=== PATIENT | female | born 1955 | race Caucasian/White ===

== ENCOUNTER 2017-12-25 20:14 | Observation (INO) | payer MEDICARE ==
[~2017-12-25] VITALS: Ht 160 cm; Wt 99.8 kg
[2017-12-25 21:12] LABS: BASOPHILS % 0.2 % (0.0-1.0); EOSINOPHILS # (AUTO) 0.2 (0.0-0.4); EOSINOPHILS % 3.7 % (0.0-6.0); LYMPHOCYTES # (AUTO) 1.2 (1.0-3.2); LYMPHOCYTES % 23.9 % (18.0-39.1); MEAN CORPUSCULAR HEMOGLOBIN 17.2 pg (28-32); MEAN CORPUSCULAR HGB CONC 26.3 g/dL (31-35); MEAN CORPUSCULAR VOLUME 65.5 fL (81-99); MONOCYTES # (AUTO) 0.6 (0.2-0.8); NEUTROPHILS # (AUTO) 3.2 (2.1-6.9); NEUTROPHILS % 60.8 % (38.7-80.0); PLATELET COUNT 273 x10e3/uL (140-360); RED BLOOD COUNT 3.19 x10e6/uL (3.6-5.1); RED CELL DISTRIBUTION WIDTH 19.9 % (11.7-14.4)
[2017-12-25 21:14] LABS: HEMATOCRIT 20.9 % (34.2-44.1); HEMOGLOBIN 5.5 g/dL (12.0-16.0)
[2017-12-25 21:24] LABS: BILIRUBIN,URINE NEGATIVE (NEGATIVE); CLARITY,URINE CLEAR (CLEAR); COLOR,URINE YELLOW (YELLOW); KETONES,URINE NEGATIVE (NEGATIVE); LEUKOCYTE ESTERASE ,URINE 2+ (NEGATIVE); NITRITE,URINE NEGATIVE (NEGATIVE); PROTEIN,URINE DIPSTICK TRACE (NEGATIVE); URINE UROBILINOGEN 0.2 mg/dL (0.2 - 1)
[2017-12-25 21:32] LABS: ALANINE AMINOTRANSFERASE 13 IU/L (0-55); ALBUMIN 3.5 g/dL (3.5-5.0); ALBUMIN/GLOBULIN RATIO 1.2 (0.8-2.0); ALKALINE PHOSPHATASE 59 IU/L (40-150); ANION GAP 13.4 mmol/L (8-16); BLOOD UREA NITROGEN 13 mg/dL (7-26); BUN/CREATININE RATIO 19 (6-25); CALCIUM 8.8 mg/dL (8.4-10.2); CARBON DIOXIDE 21 mmol/L (22-29); CHLORIDE 108 mmol/L (98-107); CREATININE, SERUM 0.68 mg/dL (0.57-1.11); EST GLOMERULAR FILTRATION RATE > 60 ML/MIN (60-); GLUCOSE 105 mg/dL (74-118); POTASSIUM 3.4 mmol/L (3.5-5.1); SODIUM 139 mmol/L (136-145)
[2017-12-25 21:38] LABS: BACTERIA,URINE FEW /HPF; EPITHELIAL CELLS,URINE RARE /LPF; MUCUS,URINE FEW (RARE); RBC,URINE 0-5 /HPF (0-5); WBC,URINE (MAN) 21-50 /HPF (0-5)
[2017-12-25] MEDS ORDERED: SODIUM CHLORIDE 0.9% 250ML 250 ML IV ONE (23:30)
[2017-12-25] MEDS ORDERED: ONDANSETRON HCL 4 MG ORAL DISINTEGRATING TAB PO PRN (23:30)
[2017-12-25] MEDS ORDERED: ACETAMINOPHEN 325 MG TAB PO PRN (23:30)
[2017-12-26 00:15] LABS: INR 1.23; PARTIAL THROMBOPLASTIN TIME 32.1 seconds (23.8-35.5); PROTHROMBIN TIME 14.6 seconds (11.9-14.5)
[2017-12-26 02:00] VITALS: BP 129/60
[2017-12-26] MEDS ORDERED: SODIUM CHLORIDE 0.9% 250ML 250 ML ONE ×3 (02:47→08:26)
[2017-12-26 04:00] VITALS: BP 135/61
[2017-12-26] MEDS: FUROSEMIDE INJ 10 MG/ML 2 ML VIAL IV PRN (06:33)
[2017-12-26] MEDS ORDERED: OMEPRAZOLE40 MG PO (07:24)
[2017-12-26] MEDS ORDERED: VENLAFAXINE HCL75 MG PO (07:24)
[2017-12-26] MEDS ORDERED: OXYBUTYNIN CHLOR5 MG PO (07:24)
[2017-12-26] MEDS: PANTOPRAZOLE SOD 40 MG TABEC PO SCH (07:30)
[2017-12-26] MEDS: FERROUS SULFATE 325 MG TAB PO SCH ×3 (07:45→17:00)
[2017-12-26 07:51] VITALS: BP 158/56
[2017-12-26] MEDS: VENLAFAXINE HCL 75 MG CAPCR PO SCH (09:00)
[2017-12-26] MEDS: OXYBUTYNIN CHLORIDE 5 MG TAB PO SCH ×2 (09:00→17:00)
[2017-12-26 11:51] VITALS: BP 125/60
[2017-12-26 13:52] LABS: BASOPHILS % 0.7 % (0.0-1.0); EOSINOPHILS # (AUTO) 0.1 (0.0-0.4); EOSINOPHILS % 2.3 % (0.0-6.0); HEMATOCRIT 27.5 % (34.2-44.1); HEMOGLOBIN 7.8 g/dL (12.0-16.0); LYMPHOCYTES % 16.1 % (18.0-39.1); MEAN CORPUSCULAR HEMOGLOBIN 19.2 pg (28-32); MEAN CORPUSCULAR HGB CONC 28.4 g/dL (31-35); MEAN CORPUSCULAR VOLUME 67.7 fL (81-99); MONOCYTES # (AUTO) 0.6 (0.2-0.8); MONOCYTES % 10.3 % (4.4-11.3); NEUTROPHILS # (AUTO) 4.3 (2.1-6.9); NEUTROPHILS % 69.9 % (38.7-80.0); PLATELET COUNT 236 x10e3/uL (140-360); RED BLOOD COUNT 4.06 x10e6/uL (3.6-5.1); RED CELL DISTRIBUTION WIDTH 20.2 % (11.7-14.4)
[2017-12-26 14:11] LABS: ALANINE AMINOTRANSFERASE 15 IU/L (0-55); ALBUMIN 3.3 g/dL (3.5-5.0); ALBUMIN/GLOBULIN RATIO 1.2 (0.8-2.0); ALKALINE PHOSPHATASE 55 IU/L (40-150); ANION GAP 11.5 mmol/L (8-16); BLOOD UREA NITROGEN 11 mg/dL (7-26); BUN/CREATININE RATIO 17 (6-25); CALCIUM 8.7 mg/dL (8.4-10.2); CARBON DIOXIDE 26 mmol/L (22-29); CHLORIDE 107 mmol/L (98-107); CREATININE, SERUM 0.66 mg/dL (0.57-1.11); EST GLOMERULAR FILTRATION RATE > 60 ML/MIN (60-); GLUCOSE 99 mg/dL (74-118); POTASSIUM 3.5 mmol/L (3.5-5.1); SODIUM 141 mmol/L (136-145)
[2017-12-26] MEDS ORDERED: SODIUM CHLORIDE 0.9% 250ML 250 ML IV ONE ×2 (14:30→15:30)
[2017-12-26 14:46] LABS: THYROID STIMULATING HORMONE 1.91 uIU/mL (0.350-4.940)
[2017-12-26 17:52] VITALS: BP 143/64
[2017-12-26 18:31] LABS: RETICULOCYTE % 1.2 % (0.8-2.2)
--- NOTE | 2017-12-26 18:55 | Consultation ---
DATE OF CONSULTATION: December 26, 2017 HEMATOLOGY-ONCOLOGY CONSULTATION REQUESTING PHYSICIAN: Dr. Rojas REASON FOR CONSULTATION: Evaluation and management of patient with severe anemia. HISTORY OF PRESENT ILLNESS: Ms. Barrett is a very pleasant, 62-year-old female with a longstanding history of severe anemia with history of GI bleed. She underwent extensive workup in the past several years ago which remained nondiagnostic. She has been on oral iron supplementation as an outpatient. Now presented with worsening shortness of breath and tiredness. She was noted to have hemoglobin of 5.5 and hematocrit of 20.9. She was admitted to inpatient floor, and hematology-oncology has been consulted to assist with management. Meanwhile, the patient has received 2 units of PRBC transfusion with improved symptoms. Presently, she is lying comfortably, not in acute distress, breathing normally. Denies any nausea, vomiting, fever, or chills. She does not recall noticing any blood in the stool. However, she has been having occasional epistaxis. PAST MEDICAL HISTORY 1. History of epistaxis. 2. History of GI bleed, status post EGD and colonoscopy back in 2010. 3. Questionable history of peptic ulcer disease and irritable bowel syndrome. PAST SURGICAL HISTORY: Surgery for the nosebleed. SOCIAL HISTORY: She denies history of smoking, alcohol use or illicit drug use. FAMILY HISTORY: Positive for lung cancer and gastric cancer. ALLERGIES: NO KNOWN DRUG ALLERGIES. CURRENT MEDICATIONS: Reviewed and as per electronic medical record. REVIEW OF SYSTEMS: The 14-point review of systems negative except as mentioned above in history of present illness. PHYSICAL EXAMINATION VITAL SIGNS: Reviewed and as per electronic medical record. HEENT: PERRLA. Extraocular movements intact. Head is atraumatic, normocephalic. NECK: Supple. No JVD. CVS: S1 and S2 audible. RESPIRATORY: Decreased bilateral air entry. ABDOMEN: Soft. Positive bowel sounds. EXTREMITIES: Negative edema. NEURO: Patient is alert and awake. LABORATORY DATA: White blood cell count 6.1, hemoglobin 7.8, hematocrit 27.5, platelets 236. BUN 17, creatinine 0.6. ASSESSMENT AND PLAN: Ms. Barrett is a very pleasant, 62-year-old female with remote history of gastrointestinal bleed requiring extensive gastrointestinal workup which, according to the patient, was nondiagnostic. Overall, the patient is a poor historian and most of the history is obtained from the chart and previous electronic medical record. It appears that she had EGD and colonoscopy back in 2010. She also has been having occasional epistaxis. In the past, she underwent surgical fixation of epistaxis, though she continued to have recurrence. She is admitted due to severe, symptomatic anemia. I have reviewed the records and discussed in detail. Overall, it appears that the patient has severe iron deficiency anemia, as the patient has microcytic picture. She has already received 2 units of PRBC transfusion with improved symptoms. She is going to receive another unit of transfusion. I will recommend long-term IV iron infusion as well as GI workup as outpatient. If she is discharged, will follow up as an outpatient. Thank you for the consult. I will continue to be available. Please call with questions. Job#: [id number] LIZABETH
[2017-12-26 19:36] LABS: FOLATE 11.7 ng/mL (7.0-15.4)
[2017-12-26 20:00] VITALS: BP 131/63
[2017-12-27] VITALS: BP 158/64
[2017-12-27 01:06] VITALS: BP 131/63
[2017-12-27] MEDS ORDERED: SODIUM CHLORIDE 0.9% 250ML 250 ML ONE (01:57)
[2017-12-27] MEDS: FUROSEMIDE INJ 10 MG/ML 2 ML VIAL IV PRN ×2 (02:00→06:08)
[2017-12-27 04:00] VITALS: BP 125/59
--- NOTE | 2017-12-27 06:35 | Diagnostic Imaging Report ---
EXAM: CHEST 2 VIEWS, PA and lateral INDICATION: Dyspnea COMPARISON: PA and lateral view of the chest October 22, 2009 FINDINGS: LINES/TUBES: None LUNGS: No consolidations or edema. PLEURA: No effusions or pneumothorax. HEART AND MEDIASTINUM: Normal size and contour. BONES AND SOFT TISSUES: No acute findings. IMPRESSION: No acute thoracic abnormality. Signed by: Dr. Angelika Haley M.D. on 12/27/2017 6:32 AM
[2017-12-27 07:55] VITALS: BP 131/58
[2017-12-27 08:16] LABS: BASOPHILS % 0.6 % (0.0-1.0); EOSINOPHILS # (AUTO) 0.2 (0.0-0.4); EOSINOPHILS % 2.8 % (0.0-6.0); HEMATOCRIT 34.9 % (34.2-44.1); HEMOGLOBIN 10.5 g/dL (12.0-16.0); LYMPHOCYTES # (AUTO) 1.1 (1.0-3.2); LYMPHOCYTES % 16.3 % (18.0-39.1); MEAN CORPUSCULAR HEMOGLOBIN 20.3 pg (28-32); MEAN CORPUSCULAR HGB CONC 30.1 g/dL (31-35); MEAN CORPUSCULAR VOLUME 67.5 fL (81-99); MONOCYTES # (AUTO) 0.7 (0.2-0.8); MONOCYTES % 9.7 % (4.4-11.3); NEUTROPHILS # (AUTO) 4.7 (2.1-6.9); NEUTROPHILS % 69.4 % (38.7-80.0); PLATELET COUNT 238 x10e3/uL (140-360); RED BLOOD COUNT 5.17 x10e6/uL (3.6-5.1); RED CELL DISTRIBUTION WIDTH 22.4 % (11.7-14.4)
[2017-12-27 08:33] LABS: ANION GAP 13.6 mmol/L (8-16); BLOOD UREA NITROGEN 9 mg/dL (7-26); BUN/CREATININE RATIO 13 (6-25); CALCIUM 9.3 mg/dL (8.4-10.2); CARBON DIOXIDE 25 mmol/L (22-29); CHLORIDE 106 mmol/L (98-107); CREATININE, SERUM 0.67 mg/dL (0.57-1.11); EST GLOMERULAR FILTRATION RATE > 60 ML/MIN (60-); GLUCOSE 103 mg/dL (74-118); POTASSIUM 3.6 mmol/L (3.5-5.1); SODIUM 141 mmol/L (136-145)
[2017-12-27] MEDS: OXYBUTYNIN CHLORIDE 5 MG TAB PO SCH (08:36)
[2017-12-27] MEDS: PANTOPRAZOLE SOD 40 MG TABEC PO SCH (08:36)
[2017-12-27] MEDS: VENLAFAXINE HCL 75 MG CAPCR PO SCH (08:36)
[2017-12-27] MEDS: FERROUS SULFATE 325 MG TAB PO SCH (08:36)
[2017-12-27 09:58] VITALS: BP 131/58
--- NOTE | 2017-12-27 10:27 | Discharge Summary ---
HISTORY OF PRESENT ILLNESS: The patient was hospitalized through the emergency room late Thursday night with severe anemia. Database was obtained. The patient was transfused and ordered to be given 4 units packed cells. Course here was uneventful. The patient has a long history of chronic epistaxis and has had multiple prior ENT procedures by Dr. Burger. See also dictated history and physical with prior negative GI workup here. The patient was kindly seen by a consulting head school custodian, Dr. Enriquez. See notes. He did not order intravenous iron at this time. The patient refused to take recommended oral iron. Essentially home medications were continued. Admission hemoglobin 5.5 with MCV 65, MCH 17, MCHC 26. Followup on December 26 after 2 units of packed cells hemoglobin was7.8 and patient was given 2 additional units. Sed rate was 13. Reticulocyte count was 1.2. White count 6.14, platelet count normal at 236,000. White cell differential normal. Pro time normal. PTT normal at 32. Pyuria on urinalysis with 21-50 white cells per high power field without symptoms of urinary tract infection. Urine culture was ordered and is pending, ordered by myself on the . Stool occult blood negative. Serum chemistries essentially normal. Cfmy099, TIBC 379, percent saturation 51. Transferrin 271. Ferritin was low at 3.85. B12 level 244, normals being 213 to 816. Folic acid level 11.7 normal. TSH 1.9. Chest x-ray clear. FINAL IMPRESSION: 1. Chronic recurring microcytic hypochromic anemia. 2. Chronic epistaxis, intermittent. 3. Overactive bladder. 4. Depression. 5. Morbid obesity with BMI 36. 6. Pyuria. Urine culture pending. The patient was asked to follow up within the week. She is advised to take oral iron 325 mg b.i.d. She is advised to follow up closely with her head school custodian and cloth bin packer. Followup urine culture. JOSE M WHEATLEY MD Job#: [id number]
[2017-12-27 11:19] LABS: ANISOCYTOSIS SLIGHT; HYPOCHROMASIA SLIGHT; MICROCYTOSIS SLIGHT; PLATELET ESTIMATE ADEQUATE; PLATELET MORPHOLOGY COMMENT NORMAL
[2017-12-27 11:20] LABS: RBC MORPHOLOGY COMMENT NORMAL
== END 2017-12-27 10:40 | disposition home or self-care (01) ==
LOC: ER 20:14 → ERHOLD 23:36 → MED/SURG 12-26 01:32
PROVIDERS: ADMIT Internal Medicine; ATTEND Internal Medicine
DX: D50.0 Iron deficiency anemia secondary to blood loss (chronic) (principal); N30.00 Acute cystitis without hematuria; R04.0 Epistaxis; K52.9 Noninfective gastroenteritis and colitis, unspecified; K20.9 Esophagitis, unspecified; K29.70 Gastritis, unspecified, without bleeding; N39.0 Urinary tract infection, site not specified; E66.01 Morbid (severe) obesity due to excess calories; Z68.38 Body mass index [BMI] 38.0-38.9, adult; Z80.0 Family history of malignant neoplasm of digestive organs; Z80.1 Family history of malignant neoplasm of trachea, bronchus and lung; N32.81 Overactive bladder
CPT/HCPCS: 36430; P9016; 36415; 71046; 80048; 80053; 81001; 82270; 82607; 82728; 82746; 83540; 83880; 84443; 84466; 85025; 85045; 85610; 85651; 85730; 86850; 86900; 86920; 87086; 93005; 99284; G0378; J1940; J7050

== ENCOUNTER 2018-06-23 12:57 | Emergency (ER) | payer MEDICARE ==
[~2018-06-23] VITALS: Ht 160 cm; Wt 99.8 kg
[~2018-06-23 12:57] MED LIST: OMEPRAZOLE40 MG PO; OXYBUTYNIN CHLOR5 MG PO; VENLAFAXINE HCL75 MG PO
--- OUTSIDE RECORDS SUMMARY | 2018-06-23 12:59 | XMS REPORT ---
Author Author [facility] Address Unknown Phone Unavailable Care Team Providers Care Transport Analyst Name Role Phone JOSE M WHEATLEY Unavailable Unavailable Problems This patient has no known problems. Allergies, Adverse Reactions, Alerts This patient has no known allergies or adverse reactions. Medications This patient has no known medications. Results Test Description Test Time Test Comments Text Results Atomic Results Result Comments CHEST 2 VIEWS [facility] [address] [id number] Patient Name: FLY MILES MR #: [id number] : 1955 Age/Sex: 62/F Req #: [id number] [facility] Physician: JOSE M WHEATLEY MD Ordered by: JOSE M WHEATLEY MD Report #: [id number] Location: MED/SURG Room/Bed: [facility] Procedure: [id number] DX/CHEST 2 VIEWS Exam Date: 12/27/17 Exam Time: 0615 REPORT STATUS: Signed EXAM: CHEST 2 VIEWS, PA and lateral INDICATION: Dyspnea COMPARISON: PA and lateral view of the chest October 22, 2009 FINDINGS: LINES/TUBES: None LUNGS: No consolidations or edema. PLEURA: No effusions or pneumothorax. HEART AND MEDIASTINUM: Normal size and contour. BONES AND SOFT TISSUES: No acute findings. IMPRESSION: No acute thoracic abnormality. Signed by: Dr. Rich Jefferson M.D. on 12/27/2017 6:32 AM Dictated By: RICH JEFFERSON MD 1 Transcribed By: DAMARIS on 12/27/17631 COPY TO: JOSE M WHEATLEY MD
[2018-06-23] MEDS ORDERED: ALBUTEROL SULF 0.083% NEB SOLN 3 ML NEB NEB STA (13:03)
[2018-06-23] MEDS ORDERED: IPRATROPIUM BROMIDE 0.02% 2.5 ML NEB NEB STA (13:03)
[2018-06-23] MEDS ORDERED: SODIUM CHLORIDE 0.9% 1000ML 1,000 ML IV STA (13:03)
[2018-06-23] MEDS ORDERED: OXYMETAZOLINE HCL 0.05% NAS 1 SPRAY BTL STA (13:03)
[2018-06-23 14:03] LABS: BASOPHILS % 0.1 % (0.0-1.0); EOSINOPHILS # (AUTO) 0.1 (0.0-0.4); EOSINOPHILS % 0.9 % (0.0-6.0); HEMATOCRIT 32.5 % (34.2-44.1); HEMOGLOBIN 9.4 g/dL (12.0-16.0); LYMPHOCYTES # (AUTO) 0.8 (1.0-3.2); LYMPHOCYTES % 9.6 % (18.0-39.1); MEAN CORPUSCULAR HEMOGLOBIN 24.5 pg (28-32); MEAN CORPUSCULAR HGB CONC 28.9 g/dL (31-35); MEAN CORPUSCULAR VOLUME 84.6 fL (81-99); MONOCYTES # (AUTO) 0.4 (0.2-0.8); MONOCYTES % 5.1 % (4.4-11.3); NEUTROPHILS # (AUTO) 6.9 (2.1-6.9); NEUTROPHILS % 83.7 % (38.7-80.0); PLATELET COUNT 220 x10e3/uL (140-360); RED BLOOD COUNT 3.84 x10e6/uL (3.6-5.1); RED CELL DISTRIBUTION WIDTH 22.5 % (11.7-14.4)
[2018-06-23 14:17] LABS: INR 1.06; PARTIAL THROMBOPLASTIN TIME 26.7 seconds (23.8-35.5); PROTHROMBIN TIME 14.8 seconds (11.9-14.5)
--- NOTE | 2018-06-23 14:22 | Diagnostic Imaging Report ---
Examination: Single AP view of the chest. COMPARISON: December 27, 2017 INDICATION: Evaluate for congestive heart failure DISCUSSION: Lines/tubes: None. Lungs: Pulmonary venous congestion with mild edema. Scattered calcified granuloma. Pleura: There is no pleural effusion or pneumothorax. Heart and mediastinum: The heart and the mediastinum are unremarkable. Bones and soft tissues: No acute bony abnormalities. IMPRESSION: Pulmonary venous congestion and mild interstitial edema. Signed by: Dr. Robi Fischer M.D. on 06/23/2018 2:19 PM
[2018-06-23 14:26] LABS: ALANINE AMINOTRANSFERASE 16 IU/L (0-55); ALBUMIN 2.8 g/dL (3.5-5.0); ALBUMIN/GLOBULIN RATIO 0.9 (0.8-2.0); ALKALINE PHOSPHATASE 61 IU/L (40-150); ANION GAP 12.1 mmol/L (8-16); BLOOD UREA NITROGEN 13 mg/dL (7-26); BUN/CREATININE RATIO 19 (6-25); CALCIUM 8.3 mg/dL (8.4-10.2); CARBON DIOXIDE 21 mmol/L (22-29); CHLORIDE 108 mmol/L (98-107); CREATINE KINASE 91 IU/L (29-168); CREATININE, SERUM 0.68 mg/dL (0.57-1.11); EST GLOMERULAR FILTRATION RATE > 60 ML/MIN (60-); GLUCOSE 104 mg/dL (74-118); POTASSIUM 4.1 mmol/L (3.5-5.1); SODIUM 137 mmol/L (136-145)
[2018-06-23 16:03] VITALS: BP 137/81
== END 2018-06-23 16:54 | disposition home or self-care (01) ==
LOC: ER 12:57
DX: R04.0 Epistaxis (principal); R42 Dizziness and giddiness; D64.9 Anemia, unspecified; K21.9 Gastro-esophageal reflux disease without esophagitis
CPT/HCPCS: 36415; 71045; 80053; 82550; 82553; 83880; 84484; 85025; 85610; 85730; 93005; 94640; 99284; J7030

== ENCOUNTER 2019-02-08 12:04 | Observation (INO) | payer MEDICARE ==
[~2019-02-08] VITALS: Ht 160 cm; Wt 97.8 kg
[2019-02-08] MEDS ORDERED: IBUPROFEN 600 MG TAB PO STA (12:42)
--- NOTE | 2019-02-08 12:53 | NUR ---
PATIENT EVALUATED BY DR. NANCE IN TRIAGE
[2019-02-08 13:45] LABS: BASOPHILS % 0.5 % (0.0-1.0); EOSINOPHILS # (AUTO) 0.1 (0.0-0.4); HEMATOCRIT 23.4 % (34.2-44.1); LYMPHOCYTES # (AUTO) 0.5 (1.0-3.2); LYMPHOCYTES % 7.4 % (18.0-39.1); MEAN CORPUSCULAR HEMOGLOBIN 21.9 pg (28-32); MEAN CORPUSCULAR HGB CONC 28.6 g/dL (31-35); MEAN CORPUSCULAR VOLUME 76.5 fL (81-99); MONOCYTES # (AUTO) 0.4 (0.2-0.8); MONOCYTES % 5.6 % (4.4-11.3); NEUTROPHILS # (AUTO) 5.3 (2.1-6.9); NEUTROPHILS % 84.5 % (38.7-80.0); PLATELET COUNT 233 x10e3/uL (140-360); RED BLOOD COUNT 3.06 x10e6/uL (3.6-5.1); RED CELL DISTRIBUTION WIDTH 18.8 % (11.7-14.4)
[2019-02-08 13:47] LABS: HEMOGLOBIN 6.7 g/dL (12.0-16.0)
[2019-02-08 13:55] LABS: INR 1.11; PARTIAL THROMBOPLASTIN TIME 33.9 seconds (23.8-35.5); PROTHROMBIN TIME 14.8 seconds (11.9-14.5)
[2019-02-08 14:01] LABS: ANION GAP 9.8 mmol/L (8-16); BLOOD UREA NITROGEN 13 mg/dL (7-26); BUN/CREATININE RATIO 22 (6-25); CALCIUM 8.8 mg/dL (8.4-10.2); CARBON DIOXIDE 26 mmol/L (22-29); CHLORIDE 102 mmol/L (98-107); CREATININE, SERUM 0.58 mg/dL (0.57-1.11); EST GLOMERULAR FILTRATION RATE > 60 ML/MIN (60-); GLUCOSE 93 mg/dL (74-118); POTASSIUM 3.8 mmol/L (3.5-5.1); SODIUM 134 mmol/L (136-145)
--- NOTE | 2019-02-08 14:41 | Diagnostic Imaging Report ---
PROCEDURE: X-RAY CHEST, TWO VIEWS COMPARISON: 06/23/2018. INDICATIONS: FEVER AND COUGH FINDINGS: The lungs are well-inflated. Minimal linear opacity in the left lung base compatible with subsegmental atelectasis. No airspace consolidation, pleural effusion, or pneumothorax. Tortuous thoracic aorta with atherosclerotic calcification. Normal heart size. Interval resolution of interstitial pulmonary edema relative to 06/23/2018. Right apical calcified granuloma unchanged. No acute osseous abnormality. Multilevel degenerative disc changes of the thoracic spine. CONCLUSION: Trace subsegmental atelectasis in the left lung base. Otherwise no acute cardiopulmonary abnormality. Dictated by: Pedro Pablo Poe M.D. on 02/08/2019 at 14:45 Electronically approved by: Pedro Pablo Poe M.D. on 02/08/2019 at 14:45
[2019-02-08 15:40] LABS: BILIRUBIN,URINE NEGATIVE (NEGATIVE); CLARITY,URINE CLEAR (CLEAR); COLOR,URINE YELLOW (YELLOW); KETONES,URINE NEGATIVE (NEGATIVE); LEUKOCYTE ESTERASE ,URINE NEGATIVE (NEGATIVE); NITRITE,URINE NEGATIVE (NEGATIVE); PROTEIN,URINE DIPSTICK NEGATIVE (NEGATIVE); URINE UROBILINOGEN 0.2 mg/dL (0.2 - 1)
[2019-02-08] MEDS ORDERED: SODIUM CHLORIDE 0.9% 250ML 250 ML IV ONE (18:00)
[2019-02-08] MEDS ORDERED: ONDANSETRON HCL INJ 2MG/ML 2ML 2 MG/ML VIAL IV PRN (18:00)
--- NOTE | 2019-02-08 18:24 | NUR ---
RECEIVED REPORT FROM JUAN IN ER AWAITING FOR PT TO ARRIVE TO FLOOR
[2019-02-08 18:35] LABS: % IRON SATURATION 37 % (15-50); IRON 123 ug/dL (50-170); TOTAL IRON BINDING CAPACITY 332 ug/dL (261-478); TRANSFERRIN 237 mg/dL (180-382)
--- NOTE | 2019-02-08 19:31 | NUR ---
Patient arrived to unit from ER. Oriented to environment and call light. Instructed to call on the onset of pain or SOB. Call light within reach.
[2019-02-08] MEDS ORDERED: BACITRACIN15 GM TOP (20:29)
[2019-02-08] MEDS ORDERED: ALLERGY RELIEF180 MG PO (20:29)
[2019-02-08] MEDS ORDERED: FISH OIL 1,2001 EAC1 (20:29)
[2019-02-08] MEDS ORDERED: OS-CAL 500+D T1 EACH PO (20:29)
[2019-02-08] MEDS ORDERED: NASAL SPRAY30 M1 ×2 (20:29)
[2019-02-08 20:54] VITALS: BP 110/62
[2019-02-08 21:00] VITALS: BP 110/62
[2019-02-08] MEDS ORDERED: SODIUM CHLORIDE 0.9% 250ML 500 ML ONE (22:18)
--- NOTE | 2019-02-08 22:48 | NUR ---
Notified Dr Rojas: temp 2205 98.7 orally, temp immediately prior blood 99.4 orally, 15 minutes into transfusion of first unit temp 99.7, 89, 19, 120/56. Order to stop blood transfusion and call Dr Enriquez. New orders for ABT. 2248 Blood stopped.
--- NOTE | 2019-02-08 22:50 | NUR ---
Dr Mina velazquez via answering service ( spoke with Kelby) Awaiting call back.
[2019-02-08] MEDS ORDERED: VANCOMYCIN 1GM/NS 250 ML 250 ML IV ONE (23:00)
--- NOTE | 2019-02-08 23:13 | NUR ---
Called answering service back: spoke with Dr Enriquez:Temp 98.7 2205, temp prior to blood 99.4 and 15 minutes into first unit 99.7. Blood stopped [address] Rojas until spoke to Dr Enriquez. 2300 100.0, 100% 117/55, 88, 20. New order to resume first unit of blood and give tylenol 650 mg po x1.
[2019-02-08] MEDS: ACETAMINOPHEN 325 MG TAB PO PRN (23:15)
--- NOTE | 2019-02-08 23:15 | NUR ---
2314 blood restarted per MD Dr Enriquez orders. 2315 Tylenol 650 mg po given x1. Will continue to monitor.
[2019-02-09] VITALS (8 sets, daily range): BP systolic 115–135; BP diastolic 55–79
[2019-02-09] MEDS ORDERED: SODIUM CHLORIDE 0.9% 250ML 250 ML ONE (00:05)
[2019-02-09] MEDS: MEROPENEM 500MG/ NS 50ML 500 MG in MEROPENEM 500MG/ NS 50ML 50 ML IV SCH ×3 (01:45→15:52)
--- NOTE | 2019-02-09 01:59 | History and Physical ---
HISTORY OF PRESENT ILLNESS: The patient called her ENT physician and she does not know his name. She states she called him because of fever and chills, and she was told to come to the emergency room. There she was found to be anemic and is being hospitalized for reassessment and transfusions. The patient has a long history of severe recurrent anemia and has been following up with her lorry weigher, Dr. Madeline Enriquez for years. Recently, the patient stopped going to her ENT physician. She has had chronic epistaxis and has nosebleeds daily. She has also prior stays here. The patient denies headache or visual change. No sore throat. Denies cough or purulent sputum. No chest pain or shortness of breath. Denies GI or symptoms. Neuromuscular is sedentary. Chronic morbid obesity. The patient refuses p.o. iron and is actually given intravenous iron routinely by her lorry weigher. The patient does report a normal bone marrow biopsy one month ago as an outpatient. See also prior records reviewed. The patient was in the ER in June for epistaxis. She was an inpatient here in December 2017. History includes reflux. She has been seen by MODESTA Engel in the past. Past history included depression and overactive bladder. The patient denies contributory family history. She states she is unaware regarding allergies. Denies major surgery. The patient is not a reliable historian. She has had cautery for nose bleeds in the past. All chart indicates positive lung cancer and gastric cancer family history. LABORATORY DATA: On December 2017, hemoglobin was 5.5. ER current lab reviewed as available. Hemoglobin is 6.7. No indices. Platelet count is within normal range. INR 1.11. PTT 33.9. Urinalysis clear. Basic metabolic profile within normal limits. White count is normal. PHYSICAL EXAMINATION: VITAL SIGNS: Temperature 101 in the ER today at 12:30. I was called at 5:40 in the evening. Current temperature is 99.2, pulse 88, respiratory rate 18, BP 121/88, and O2 saturation 100%. HEENT: Pupils are round and reactive. Pale. Throat is clear. No epistaxis now. PULMONARY: Auscultation is clear. (ER chest x-ray today, trace subsegmental atelectasis, left lung base). ABDOMEN: Obese and soft. Bowel sounds are normal. EXTREMITIES: Revealed dampened pulses without significant edema, cyanosis, or clubbing. DTR is depressed. NEUROLOGIC: Strength poor, sensorium trace, dull. CURRENT IMPRESSION: Acute febrile illness. Recurrent epistaxis with severe anemia. Chronic iron deficiency. The patient refuses p.o. iron and has refused p.o. iron long-standing. To reassess anemia, transfuse. Further treatment pending followup database. See also followup orders. Urine culture was requested. Hematology to see. ENT to follow up here. MD DARWIN Galan/MODL /[id number]
[2019-02-09] MEDS: ACETAMINOPHEN 325 MG TAB PO PRN (03:15)
--- NOTE | 2019-02-09 07:00 | NUR ---
BEDSIDE ROUNDS COMPLETE NO DISTRESS NOTED, UPDATED ON POC VOICED UNDERSTANDING, DENIES PAIN AT THIS TIME, R & L WRIST 20G NO SS OF INFILTRATION NOTED, NO OTHER CO VOICED CALL LIGHT IN REACH WILL CONTINUE OT MONITOR
--- NOTE | 2019-02-09 07:47 | Consultation ---
DATE OF CONSULTATION: 02/08/2019 REQUESTING PHYSICIAN: Kevin Rojas MD CONSULTING PHYSICIAN: Madeline Enriquez MD, Hematology-Oncology Service. REASON FOR CONSULTATION: Evaluation and management of patient with severe anemia, presented with epistaxis. HISTORY OF PRESENTING ILLNESS: Ms. Barrett is a very pleasant 63-year-old female with multiple medical problems, including known history of peptic ulcer disease, GI bleed, depression, parkinsonism, and gastroesophageal reflux disease, presented to the emergency department due to worsening fatigue, tiredness, and shortness of breath. She started having epistaxis and notes her bleed intermittently for the last several days, which got worsened to the point she presented to the emergency department. In the ER, she was noted to have severe anemia with hemoglobin in the 6 range, subsequently admitted to inpatient floor for further care. Hematology-Oncology has been consulted to assist with the management. Presently, she is lying comfortably, not in acute distress, feeling better. She has a history of iron deficiency anemia, for which she has been requiring IV iron infusion in the outpatient setting. PAST MEDICAL HISTORY: 1. Longstanding history of anemia. 2. History of peptic ulcer disease. 3. Depression. 4. Parkinson disease. 5. Gastroesophageal reflux disease. 6. History of GI bleed. PAST SURGICAL HISTORY: 1. Cyst removed from the back. 2. Nose surgery. FAMILY HISTORY: Mother and brother had lung cancer. Father had stomach cancer. SOCIAL HISTORY: She denies history of smoking, alcohol use, or illicit drug use. She lives in [place]. ALLERGIES: NO KNOWN DRUG ALLERGIES. CURRENT MEDICATIONS: Reviewed as per electronic medical record. REVIEW OF SYSTEMS: A 14-point review of systems is negative except as mentioned in history of presenting illness. PHYSICAL EXAMINATION: VITAL SIGNS: Reviewed as per electronic medical record. HEENT: PERRLA. Extraocular movements are intact. Head is atraumatic and normocephalic. NECK: Supple. CVS: S1, S2 audible. RESPIRATORY: Decreased bilateral air entry. ABDOMEN: Soft. Positive bowel sounds. EXTREMITIES: Negative edema. NEURO: The patient is alert and awake. LABORATORY DATA: White blood cell count of 6.2, hemoglobin 6.7, hematocrit 23.2, and platelet of 233. BUN 13 and creatinine 0.5. ASSESSMENT AND PLAN: Ms. Barrett is a very pleasant 63-year-old female, who is very well known to me as she has a longstanding history of anemia, for which she has been requiring IV iron infusion in outpatient setting. Now she presented to the Emergency Department due to worsening fatigue, tiredness, and epistaxis. She was noted to have severe anemia and subsequently admitted to inpatient floor. Hematology-Oncology has been consulted to assist with the management. I have reviewed the record and discussed at length with the patient about her current disease and importance of further workup. At this point, agree with that she needed a PRBC transfusion instead to improve her blood count. After this, she will appear to be improving, though it does not improve, then may need further evaluation. For now, close monitoring is required. Thank you for the consult. I will continue to be available. Please call with questions. MD ORLY Mcdonnell/BLAKE /[id number]
[2019-02-09 07:59] LABS: BASOPHILS % 0.8 % (0.0-1.0); EOSINOPHILS # (AUTO) 0.4 (0.0-0.4); EOSINOPHILS % 7.2 % (0.0-6.0); HEMATOCRIT 30.1 % (34.2-44.1); HEMOGLOBIN 9.2 g/dL (12.0-16.0); LYMPHOCYTES # (AUTO) 0.8 (1.0-3.2); LYMPHOCYTES % 15.2 % (18.0-39.1); MEAN CORPUSCULAR HEMOGLOBIN 23.6 pg (28-32); MEAN CORPUSCULAR HGB CONC 30.6 g/dL (31-35); MEAN CORPUSCULAR VOLUME 77.2 fL (81-99); MONOCYTES # (AUTO) 0.6 (0.2-0.8); MONOCYTES % 10.9 % (4.4-11.3); NEUTROPHILS # (AUTO) 3.3 (2.1-6.9); NEUTROPHILS % 64.1 % (38.7-80.0); PLATELET COUNT 164 x10e3/uL (140-360); RED CELL DISTRIBUTION WIDTH 17.2 % (11.7-14.4)
[2019-02-09 08:26] LABS: ALANINE AMINOTRANSFERASE 19 IU/L (0-55); ALBUMIN 2.7 g/dL (3.5-5.0); ALKALINE PHOSPHATASE 69 IU/L (40-150); ANION GAP 8.8 mmol/L (8-16); BLOOD UREA NITROGEN 10 mg/dL (7-26); BUN/CREATININE RATIO 18 (6-25); CALCIUM 8.6 mg/dL (8.4-10.2); CARBON DIOXIDE 25 mmol/L (22-29); CHLORIDE 111 mmol/L (98-107); CREATININE, SERUM 0.57 mg/dL (0.57-1.11); EST GLOMERULAR FILTRATION RATE > 60 ML/MIN (60-); GLUCOSE 96 mg/dL (74-118); POTASSIUM 3.8 mmol/L (3.5-5.1); SODIUM 141 mmol/L (136-145)
--- NOTE | 2019-02-09 18:45 | NUR ---
Received bedside report from day shift RN. The patient is laying on the bed, not in distress. Call light within reach, bed height low, wheels lock and side rails up x2.
--- NOTE | 2019-02-09 20:22 | Diagnostic Imaging Report ---
SINUSES (PARANASAL)MIN 3VIEWS - 3 views HISTORY: Acute on chronic sinusitis. COMPARISON: None available. FINDINGS: Bones: Paranasal sinuses: Mild increased density in the right maxillary sinus without air-fluid levels. Remainder of aerated paranasal sinuses are clear. No acute displaced fracture. Osseous alignment is within normal limits. Joints: The joint spaces are well-maintained. Soft tissues: Possible intracranial calcifications rectal region vertex. IMPRESSION: Possible right maxillary sinusitis in the proper clinical setting. Signed by: Dr. Alison Burt M.D. on 02/09/2019 8:19 PM
[2019-02-09] MEDS ORDERED: VANCOMYCIN 1GM/NS 250 ML 250 ML IV SCH (23:00)
[2019-02-10] VITALS: BP 119/58
[2019-02-10] MEDS: MEROPENEM 500MG/ NS 50ML 500 MG in MEROPENEM 500MG/ NS 50ML 50 ML IV SCH ×2 (00:07→08:49)
[2019-02-10 04:00] VITALS: BP 140/66
[2019-02-10 05:55] LABS: BASOPHILS # (AUTO) 0.1 (0.0-0.1); BASOPHILS % 1.1 % (0.0-1.0); EOSINOPHILS # (AUTO) 0.5 (0.0-0.4); EOSINOPHILS % 8.2 % (0.0-6.0); HEMATOCRIT 31.5 % (34.2-44.1); HEMOGLOBIN 9.1 g/dL (12.0-16.0); LYMPHOCYTES # (AUTO) 1.3 (1.0-3.2); MEAN CORPUSCULAR HEMOGLOBIN 23.2 pg (28-32); MEAN CORPUSCULAR HGB CONC 28.9 g/dL (31-35); MEAN CORPUSCULAR VOLUME 80.2 fL (81-99); MONOCYTES # (AUTO) 0.8 (0.2-0.8); MONOCYTES % 12.4 % (4.4-11.3); NEUTROPHILS # (AUTO) 3.6 (2.1-6.9); NEUTROPHILS % 55.8 % (38.7-80.0); PLATELET COUNT 176 x10e3/uL (140-360); RED BLOOD COUNT 3.93 x10e6/uL (3.6-5.1); RED CELL DISTRIBUTION WIDTH 18.1 % (11.7-14.4)
[2019-02-10 06:20] LABS: ANION GAP 8.7 mmol/L (8-16); BLOOD UREA NITROGEN 9 mg/dL (7-26); BUN/CREATININE RATIO 16 (6-25); CALCIUM 8.6 mg/dL (8.4-10.2); CARBON DIOXIDE 25 mmol/L (22-29); CHLORIDE 111 mmol/L (98-107); CREATININE, SERUM 0.57 mg/dL (0.57-1.11); EST GLOMERULAR FILTRATION RATE > 60 ML/MIN (60-); GLUCOSE 99 mg/dL (74-118); POTASSIUM 3.7 mmol/L (3.5-5.1); SODIUM 141 mmol/L (136-145)
[2019-02-10 07:30] VITALS: BP 140/64
--- NOTE | 2019-02-10 07:30 | NUR ---
REC'D PT AAOX3, ON ROOM AIR, LEFT AND RIGHT IV INTACT AND PATENT, WEARS GLASSES, NON-SKID SOCKS ON FEET. SIDE RAILS UP X2, CALL BARROW WITHIN REACH, AND BED IN LOWEST POSITION.
[2019-02-10 08:16] VITALS: BP 140/64
[2019-02-10] MEDS ORDERED: LORATADINE 10 MG TAB PO SCH (09:00)
[2019-02-10] MEDS ORDERED: OXYBUTYNIN CHLORIDE 5 MG TAB PO SCH (09:00)
[2019-02-10] MEDS ORDERED: PANTOPRAZOLE SOD 40 MG TABEC PO SCH (09:00)
[2019-02-10] MEDS ORDERED: [UNRECOGNIZED DRUG - REMARK] PO SCH (09:00)
[2019-02-10 12:36] VITALS: BP 134/60
[2019-02-10] MEDS ORDERED: AUGMENTIN 500-1 EACH PO (16:19)
--- NOTE | 2019-02-10 16:38 | NUR ---
CALLED PROVIDER DONAL AT [phone] TO LET KNOW THAT PATIENT HAS BEEN DISCHARGED BY DR. WHEATLEY. PROVIDER DID NOT ANSWER AND LEFT A VOICEMAIL TO CALL BACK.
[2019-02-10 17:13] VITALS: BP 112/61
--- NOTE | 2019-02-10 18:02 | NUR ---
IV'S REMOVED FROM BOTH HANDS, NO S/S OF DISTRESS, DISCHARGE PAPERS GIVEN AND EXPLAINED TO PATIENT AND CAREGIVER. PATIENT UNDERSTOOD THAT SHE NEEDS TO FOLLOW UP WITH HER PCP, DR. WHEATLEY, DR. PRASAD, AND DR. GREGG IN 1-2 WEEKS. PATIENT ESCORTED VIA WHEELCHAIR AND INTO PROVIDER'S CAR.
[2019-02-10] MEDS ORDERED: OXYMETAZOLINE HCL 0.05% NAS 1 SPRAY BTL SCH (21:00)
--- NOTE | 2019-02-10 23:49 | Progress Note ---
DATE: 02/10/2019 CHIEF COMPLAINT: The patient with severe anemia and acute epistaxis and worsening fatigue and tiredness. HISTORY OF PRESENTING ILLNESS: Ms. Barrett is a very pleasant 63-year-old female with multiple medical problems with known history of iron deficiency anemia, who was admitted due to epistaxis. Laboratory workup revealed critical anemia with hemoglobin 16. She was admitted to inpatient floor and received 2 units of PRBCs transfusion with improved count. PHYSICAL EXAMINATION: VITAL SIGNS: Reviewed as per electronic medical record. Head: Atraumatic and normocephalic. NECK: Supple. CVS: S1, S2 audible. RESPIRATORY: Decreased bilateral air entry. ABDOMEN: Soft. Positive bowel sounds. EXTREMITIES: Negative edema. NEURO: The patient is alert and awake. LABORATORY DATA: Reviewed as per electronic medical record. ASSESSMENT AND PLAN: The patient is doing good. She is okay to discharge home with decision to follow up in outpatient setting with IV iron infusion. MD ORLY Mcdonnell/MODL /[id number]
--- NOTE | 2019-02-11 12:13 | Discharge Summary ---
HOSPITAL COURSE: The patient was hospitalized through the emergency room with acute febrile illness and severe anemia. The patient has a long history of daily epistaxis and recurrent severe anemia. She was followed closely by her leave specialist, Dr. Raul Enriquez , who saw the patient while here. ENT was also consulted. The patient was transfused. She experienced a mild fever after admission as well as prior to admission and eventually defervesced. X-rays compatible with right maxillary sinusitis and intracranial calcification according to report. The patient experienced no significant adverse symptoms after arrival. See also serial orders. Telemetry with sinus rhythm throughout stay. Empiric antibiotics were administered while here. The patient was continued on antihistamines and decongestants. She has been on intravenous iron through her leave specialist on an outpatient basis chronically. Hemoglobin 6.7 on arrival, 9.1 on February 10. White counts normal. Indices low. Platelets normal. Differential, white count normal. ProTime and PTT are normal. Urinalysis clear. Chemistries monitored and essentially normal. Iron 123, normal. TIBC 332, percent saturation 37, normal. Transferrin 237, normal. No bleeding other than mild epistaxis observed here. Blood cultures, urine culture negative. Imaging as above. Admission chest x-ray, trace subsegmental atelectasis in the left lung base. The patient will resume home medications and continue oral antibiotics transiently post discharge. See discharge med reconciliation list. Clearance with consultants prior to admission requested. She was asked to follow up within the week with myself and to continue close followup with ENT and with her leave specialist as prior to admission had been recommended. Impression: Acute febrile illness; Sinusitis; Chronic epistaxis; Secondary chronic anemia, severe. MD DARWIN Galan/BLAKE /[id number] CHRIS
== END 2019-02-10 18:05 | disposition home or self-care (01) ==
LOC: ER 12:04 → ERHOLD 18:01 → MED/SURG 19:36
PROVIDERS: ADMIT Internal Medicine; ATTEND Internal Medicine
DX: D62 Acute posthemorrhagic anemia (principal); R04.0 Epistaxis; Z53.29 Procedure and treatment not carried out because of patient's decision for other reasons; G20 Parkinson's disease; K21.9 Gastro-esophageal reflux disease without esophagitis; J32.0 Chronic maxillary sinusitis; G93.89 Other specified disorders of brain; Z87.11 Personal history of peptic ulcer disease
CPT/HCPCS: 36415 ×3; 70220; 71046; 80048 ×2; 80053; 81001; 83540; 84466; 85025 ×3; 85610; 85730; 86850; 86900; 86920; 87040; 87086; 99284; G0378 ×3; J3370; J7050 ×2; P9016 ×2; S0164

== ENCOUNTER 2019-10-15 15:46 | Inpatient (IN) | payer MEDICARE ==
[~2019-10-15] VITALS: Ht 160 cm; Wt 97.5 kg
[~2019-10-15 15:46] MED LIST changes: +ALLERGY RELIEF180 MG PO; +AUGMENTIN 500-1 EACH PO; +BACITRACIN15 GM TOP; +FISH OIL 1,2001 EAC1; +NASAL SPRAY30 M1; +OS-CAL 500+D T1 EACH PO
[2019-10-15] MEDS ORDERED: PANTOPRAZOLE 40 MG 10ML VIAL IV STA (15:49)
[2019-10-15] MEDS ORDERED: SODIUM CHLORIDE 0.9% 250ML 250 ML IV ONE (16:00)
--- NOTE | 2019-10-15 16:11 | NUR ---
REFUSED FLU SWAB
--- NOTE | 2019-10-15 16:12 | NUR ---
DR WHEATLEY EXAMINED PT IN TRIAGE
[2019-10-15 16:37] LABS: BASOPHILS % 0.4 % (0.0-1.0); EOSINOPHILS # (AUTO) 0.1 (0.0-0.4); EOSINOPHILS % 2.5 % (0.0-6.0); LYMPHOCYTES # (AUTO) 0.7 (1.0-3.2); LYMPHOCYTES % 13.8 % (18.0-39.1); MEAN CORPUSCULAR HEMOGLOBIN 16.1 pg (28-32); MEAN CORPUSCULAR HGB CONC 24.3 g/dL (31-35); MEAN CORPUSCULAR VOLUME 66.3 fL (81-99); MONOCYTES # (AUTO) 0.6 (0.2-0.8); MONOCYTES % 11.3 % (4.4-11.3); NEUTROPHILS # (AUTO) 3.5 (2.1-6.9); NEUTROPHILS % 71.2 % (38.7-80.0); PLATELET COUNT 306 x10e3/uL (140-360); RED BLOOD COUNT 2.67 x10e6/uL (3.6-5.1); RED CELL DISTRIBUTION WIDTH 20.7 % (11.7-14.4)
[2019-10-15 16:43] LABS: HEMOGLOBIN 4.3 g/dL (12.0-16.0)
[2019-10-15 16:44] LABS: HEMATOCRIT 17.7 % (34.2-44.1)
[2019-10-15 16:47] LABS: INR 1.13; PROTHROMBIN TIME 15.2 seconds (11.9-14.5)
[2019-10-15 16:48] LABS: PARTIAL THROMBOPLASTIN TIME 31.2 seconds (23.8-35.5)
--- NOTE | 2019-10-15 16:52 | Diagnostic Imaging Report ---
Examination: Single AP view of the chest. COMPARISON: Chest 2 views 02/08/2019 INDICATION: Anemia, fever IMPRESSION: 1. Lines and Tubes: None 2. Lungs are well-inflated. Stable calcified granuloma in the right upper lobe. Minimal bibasilar atelectatic changes. No consolidation or effusion. 3. Mild prominence of the cardiac silhouette, which may be partly due to portable AP projection. Pulmonary vasculature is normal. 4. No acute bony abnormalities. Signed by: Dr. Kike Bangura M.D. on 10/15/2019 4:48 PM
[2019-10-15 16:56] LABS: ALANINE AMINOTRANSFERASE 12 IU/L (0-55); ALBUMIN 3.7 g/dL (3.5-5.0); ALBUMIN/GLOBULIN RATIO 1.2 (0.8-2.0); ALKALINE PHOSPHATASE 65 IU/L (40-150); BLOOD UREA NITROGEN 14 mg/dL (7-26); BUN/CREATININE RATIO 22 (6-25); CALCIUM 9.1 mg/dL (8.4-10.2); CARBON DIOXIDE 26 mmol/L (22-29); CHLORIDE 107 mmol/L (98-107); CREATINE KINASE 64 IU/L (29-168); CREATININE, SERUM 0.63 mg/dL (0.57-1.11); EST GLOMERULAR FILTRATION RATE > 60 ML/MIN (60-); GLUCOSE 82 mg/dL (74-118); SODIUM 139 mmol/L (136-145)
[2019-10-15] MEDS ORDERED: PHYTONADIONE 10 MG/ML AMP SQ ONE (17:00)
[2019-10-15 17:25] LABS: ANISOCYTOSIS SLIGHT; HYPOCHROMASIA SLIGHT; MICROCYTOSIS SLIGHT; OVALOCYTES FEW; PLATELET ESTIMATE ADEQUATE; PLATELET MORPHOLOGY COMMENT NORMAL
[2019-10-15] MEDS ORDERED: ACETAMINOPHEN 325 MG TAB PO PRN (17:30)
[2019-10-15] MEDS ORDERED: ONDANSETRON HCL INJ 2MG/ML 2ML 2 MG/ML VIAL IV PRN (17:30)
[2019-10-15 17:34] LABS: THYROID STIMULATING HORMONE 2.643 uIU/mL (0.350-4.940)
--- NOTE | 2019-10-15 18:10 | NUR ---
RECEIVED TO RM AAOX3 NO DISTRESS NOTED, PT IN STABLE CONDITION, UPDATED ON POC VOICED UNDERSTANDING, L AC 20G NO SS OF INFILTRATION NOTED, ORIENTED TO RM, BED LOW/LOCKED POSITION, ALARM SET, CALL LIGHT IN REACH WILL CONTINUE TO MONITOR
[2019-10-15 18:15] LABS: CLARITY,URINE HAZY (CLEAR); COLOR,URINE YELLOW (YELLOW); LEUKOCYTE ESTERASE ,URINE 1+ (NEGATIVE); NITRITE,URINE NEGATIVE (NEGATIVE); PROTEIN,URINE DIPSTICK NEGATIVE (NEGATIVE)
[2019-10-15 18:16] LABS: BACTERIA,URINE FEW /HPF; BILIRUBIN,URINE NEGATIVE (NEGATIVE); EPITHELIAL CELLS,URINE FEW /LPF; KETONES,URINE NEGATIVE (NEGATIVE); URINE UROBILINOGEN 1 mg/dL (0.2 - 1)
[2019-10-15 18:36] VITALS: BP 148/65
[2019-10-15] MEDS ORDERED: SODIUM CHLORIDE 0.9% 250ML 250 ML ONE ×2 (19:27→23:48)
[2019-10-15 19:35] VITALS: BP 138/60
[2019-10-15 20:15] VITALS: BP 138/60
[2019-10-15] MEDS: FUROSEMIDE INJ 10 MG/ML 2 ML VIAL IV PRN (22:30)
--- NOTE | 2019-10-15 23:43 | History and Physical ---
HISTORY OF PRESENT ILLNESS: The patient presented to the office yesterday with complaints of onychomycosis involving the large toes. Because of her history, CBC was ordered. I was called by the lab today stating her hemoglobin was 4.6. The patient was asked to present to the emergency room, where she was seen on arrival by the ER physician and by myself thereafter. Case discussed with ER physician prior to the patient's arrival. The patient has a long history (she says nearly lifelong) recurrent anemia. 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 She has also in the past undergone GI evaluations including colonoscopy here in 2010 with ileitis, a polyp, small internal hemorrhoids. The patient states she has a history of ulcer disease and GERD. She states she has chronic recurrent epistaxis, but denies epistaxis for the last 2 weeks. She had a short episode of bleeding there prior to that time. She has been a regular visitor to her ENT consultants in the past. The patient denies headache or visual change. She denies difficulty swallowing. Denies chest pain or shortness of breath, although she is sedentary. She denies observed GI bleeding. Denies nausea, vomiting, or diarrhea. Denies current urological symptoms. Neuromuscular history per patient negative. FAMILY HISTORY: The patient's mother and brother experienced cancer of the lung. Father with carcinoma of the "stomach." ALLERGIES: NO KNOWN DRUG ALLERGIES. PAST SURGICAL HISTORY: Surgeries have included a cyst on the back. Prior nasal surgery. MEDICATIONS: See also ER list of medications prior to admission, although the patient denies that she has been taking these. The old medications have included Effexor, oxymetazoline nasal spray, oxybutynin 5 b.i.d., omeprazole 40, bacitracin, Augmentin, calcium and vitamin D, Lupe (the patient had sinusitis on last stay here last summer). PHYSICAL EXAMINATION: VITAL SIGNS: Temperature is 100.2, pulse 91, respiratory rate 18, blood pressure 142/68, pulse oximetry 99%. HEENT: Nasal flu studies have been ordered by ER, although the patient refused these. The patient's sensorium is baseline. She has a mild speech impediment chronically. She is oriented. Pupils are pupils are round and reactive. The patient is pale. Throat clear. Tongue slightly reddened. NECK: Pulses palpable. No palpable goiter. PULMONARY: On auscultation, reduced breath sounds. CARDIAC: Sounds S1 and S2 distant. ABDOMEN: Obese. Soft. Bowel sounds normal. EXTREMITIES: With trace edema. Onychomycosis, large toes. Pulses palpable. Strength fair. DTRs reduced. CURRENT IMPRESSION: Recurrent and chronic severe anemia. Followed in the past by a Hematology data governance consultant as mentioned above. Lab reports low hemoglobin now. To reassess anemia with her auto parts handler. Check stool for blood. Transfuse. Low-grade fever. Rule out flu. Rule out other etiology and is able while here. The patient has not been cooperative as mentioned above. She is a good candidate for febrile transfusion reaction as she has had transfusions previously. She has not yet been transfused, however. History of sinusitis last stay here. History of overactive bladder. Rule out urinary tract infection. History of depression. History of peptic ulcer disease and gastroesophageal reflux disease according to the patient. Consider GI evaluation again. 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 Seen on her lips. She denies known history of central nervous system or pulmonary arteriovenous malformations. See also initial and followup orders. Await data, pending. MD DARWIN Galan/MODL /[id number]
[2019-10-16] VITALS (9 sets, daily range): BP systolic 103–145; BP diastolic 55–68
[2019-10-16 00:20] LABS: CREATINE KINASE MB 2.7 ng/mL (0-5.0)
[2019-10-16] MEDS: FUROSEMIDE INJ 10 MG/ML 2 ML VIAL IV PRN ×2 (02:35→06:30)
[2019-10-16] MEDS ORDERED: SODIUM CHLORIDE 0.9% 250ML 250 ML ONE (03:37)
--- NOTE | 2019-10-16 07:00 | NUR ---
BEDSIDE SHIFT REPORT RECEIVED PT IN STABLE CONDITION, DENIES PAIN AT THIS TIME, UPDATED ON POC VOCIED UNDERSTANDING, CALL LIGHT IN REACH WILL CONTINUE TO MONITOR
[2019-10-16 08:18] LABS: BASOPHILS % 0.7 % (0.0-1.0); EOSINOPHILS # (AUTO) 0.2 (0.0-0.4); EOSINOPHILS % 2.7 % (0.0-6.0); HEMATOCRIT 26.9 % (34.2-44.1); LYMPHOCYTES # (AUTO) 0.8 (1.0-3.2); LYMPHOCYTES % 13.9 % (18.0-39.1); MEAN CORPUSCULAR HEMOGLOBIN 20.2 pg (28-32); MEAN CORPUSCULAR HGB CONC 28.6 g/dL (31-35); MEAN CORPUSCULAR VOLUME 70.6 fL (81-99); MONOCYTES # (AUTO) 0.8 (0.2-0.8); MONOCYTES % 12.7 % (4.4-11.3); NEUTROPHILS # (AUTO) 4.1 (2.1-6.9); PLATELET COUNT 273 x10e3/uL (140-360); RED BLOOD COUNT 3.81 x10e6/uL (3.6-5.1); RED CELL DISTRIBUTION WIDTH 21.8 % (11.7-14.4)
[2019-10-16 08:21] LABS: HEMOGLOBIN 7.7 g/dL (12.0-16.0)
[2019-10-16 08:28] LABS: INR 1.08; PROTHROMBIN TIME 14.7 seconds (11.9-14.5)
[2019-10-16 08:37] LABS: ANION GAP 9.4 mmol/L (8-16); BLOOD UREA NITROGEN 10 mg/dL (7-26); BUN/CREATININE RATIO 16 (6-25); CALCIUM 9.1 mg/dL (8.4-10.2); CARBON DIOXIDE 30 mmol/L (22-29); CHLORIDE 105 mmol/L (98-107); CREATININE, SERUM 0.61 mg/dL (0.57-1.11); EST GLOMERULAR FILTRATION RATE > 60 ML/MIN (60-); GLUCOSE 90 mg/dL (74-118); POTASSIUM 3.4 mmol/L (3.5-5.1); SODIUM 141 mmol/L (136-145)
[2019-10-16] MEDS: PANTOPRAZOLE SOD 40 MG TABEC PO SCH (08:44)
[2019-10-16] MEDS ORDERED: FUROSEMIDE INJ 10 MG/ML 2 ML VIAL IV PRN (09:00)
[2019-10-16] MEDS ORDERED: SODIUM CHLORIDE 0.9% 250ML 250 ML IV ONE (09:00)
[2019-10-16 09:28] LABS: FERRITIN 1.75 ng/mL (4.63-204.00)
[2019-10-16] MEDS ORDERED: SODIUM FERRIC GLUCONATE COMPLX 125 MG in SODIUM CHLORIDE 0.9% 100 ML 100 ML IV SCH (12:00)
[2019-10-16] MEDS ORDERED: CITRATE OF MAGNESIA 300ML BOTTLE PO ONE (18:45)
[2019-10-16] MEDS ORDERED: CYANOCOBALAMIN INJ 1,000 MCG/ML VIAL IM ONE (23:00)
--- NOTE | 2019-10-16 23:05 | NUR ---
DR. Mena MELENDEZ DOING ROUNDS. NEW ORDERS RECEIVED. SEE EMR FOR LIST OF ORDERS
[2019-10-17] VITALS (8 sets, daily range): BP systolic 116–149; BP diastolic 59–67
[2019-10-17 05:58] LABS: HEMATOCRIT 33.8 % (34.2-44.1); HEMOGLOBIN 9.7 g/dL (12.0-16.0)
--- NOTE | 2019-10-17 07:00 | NUR ---
RECEIVED PATIENT AWAKE RESTING IN BED NO S/S OF DISTRESS. BED LOW, WHEELS LOCKED, SIDE RAILS X2, CALL LIGHT IN REACH WILL CONTINUE TO MONITOR PATIENT.
[2019-10-17] MEDS ORDERED: SODIUM CHLORIDE 0.9% 250ML 250 ML ONE ×2 (08:09→12:21)
[2019-10-17] MEDS: PANTOPRAZOLE SOD 40 MG TABEC PO SCH (09:06)
[2019-10-17] MEDS: CYANOCOBALAMIN INJ 1,000 MCG/ML VIAL IM SCH (09:06)
[2019-10-17] MEDS: SODIUM FERRIC GLUCONATE COMPLX 125 MG in SODIUM CHLORIDE 0.9% 100 ML 100 ML IV SCH (09:06)
[2019-10-17] MEDS ORDERED: SODIUM CHLORIDE 0.9% 250ML 250 ML IV ONE (11:00)
--- NOTE | 2019-10-17 12:40 | NUR ---
BLOOD TRANSFUSION STARTED. PATIENT TOLERATING WELL, VS STABLE. WILL CONTINUE TO MONITOR
[2019-10-17] MEDS ORDERED: PROPOFOL IV EMULSION 10 MG/ML 50 ML VIAL ONE (14:08)
--- NOTE | 2019-10-17 15:08 | NUR ---
BLOOD TRANSFUSION COMPLETE. PATIENT TOLERATED WELL, NO S/S OF DISTRESS. VS STABLE. WILL CONTINUE TO MONITOR PATIENT.
--- NOTE | 2019-10-17 15:49 | NUR ---
PATIENT LEFT AT THIS TIME FOR ENTEROSCOPY VIA BED IN STABLE CONDITION.
--- NOTE | 2019-10-17 17:05 | NUR ---
PATIENT BACK FROM ENDOSCOPY IN STABLE CONDITION. VS STABLE. PATIENT NOW ON FULL LIQUID DIET.
--- NOTE | 2019-10-17 17:56 | Operative Report ---
DATE OF PROCEDURE: 10/17/2019 SURGEON: Tee Reyes MD PROCEDURE: EGD/enteroscopy with fulguration of AVMs and biopsies. INDICATIONS FOR PROCEDURE: Anemia. MEDICATIONS: The patient was done under MAC, please see anesthesiologist's note. PROCEDURE IN DETAIL: With the patient in left lateral decubitus position, a flexible fiberoptic Olympus pediatric colonoscope was inserted into the oropharynx under direct visualization without any difficulty. Some reddish tinged blood was noted in the oropharynx. No actively bleeding site could be delineated. The scope was then advanced into the esophagus and questionable AVMs were noted in the distal esophagus. There was no active bleeding. The scope was then advanced into the stomach traversing a small hiatal hernia. Multiple gastric polyps were noted in the stomach and some were partially excised with the cold biopsy forceps. The pylorus was of normal contour and shape, and the scope was then advanced all the way to 160 cm from the incisors. It was then withdrawn slowly and mucosa overlying the proximal jejunum as well as the duodenum grossly appeared to be within normal limits. The scope was then withdrawn back into the stomach and retroflexed. Mucosa overlying the fundus and the cardia appeared to be within normal limits. The scope was then straightened out, it was subsequently withdrawn. The EGD scope was introduced into the esophagus and the previously described ? AVMs, distal esophagus were fulgurated with size 7-B[place] Gold Probe. The scope was subsequently withdrawn. The patient tolerated the procedure well. IMPRESSION: 1. Some reddish tinged blood in oropharynx. No actively bleeding lesion could be delineated. 2. ? Arteriovenous malformations, distal esophagus, fulgurated with size 7seven-[place] Gold Probe. 3. Small hiatal hernia. 4. Gastric polyps, some partially excised with cold biopsy forceps. PLAN: Follow up histology. Follow H and H. ? ENT evaluation. Tee Reyes MD MSH/MODL /[id number] cc: Kevin Rojas MD
[2019-10-17] MEDS ORDERED: CEFTRIAXONE SOD 1 GM/NS 50 ML 50 ML IV ONE (18:45)
--- NOTE | 2019-10-17 19:00 | NUR ---
Received patient awake, not in distress, call light within easy reach,assistive device at bedside, advised to call for assistance anytime when needed, will continue to monitor accordingly
[2019-10-18] VITALS (10 sets, daily range): BP systolic 121–149; BP diastolic 58–65
[2019-10-18 05:55] LABS: HEMATOCRIT 35.5 % (34.2-44.1)
--- NOTE | 2019-10-18 07:00 | NUR ---
RECEIVED PATIENT AWAKE RESTING IN BED NO S/S OF DISTRESS. BED LOW, WHEELS LOCKED, SIDE RAILS X2, CALL LIGHT IN REACH WILL CONTINUE TO MONITOR PATIENT.
--- NOTE | 2019-10-18 07:06 | NUR ---
walking rounds done with rhonda RN, call light within reach
[2019-10-18] MEDS: PANTOPRAZOLE SOD 40 MG TABEC PO SCH (08:49)
[2019-10-18] MEDS: CYANOCOBALAMIN INJ 1,000 MCG/ML VIAL IM SCH (08:49)
[2019-10-18] MEDS: SODIUM FERRIC GLUCONATE COMPLX 125 MG in SODIUM CHLORIDE 0.9% 100 ML 100 ML IV SCH (08:49)
--- NOTE | 2019-10-18 19:49 | Diagnostic Imaging Report ---
Tagged-RBC GI Bleed Study Clinical information: 64-year-old female with anemia. Discussion: The patient's own red blood cells were labeled with 25 mCi of technetium-99m pertechnetate using the in vitro method (UltraTag). Dynamic images of the abdomen were obtained through 60 minutes. Distribution of tracer activity appears physiologic throughout the abdomen. No abnormal accumulation of tracer is seen within the gastrointestinal lumen. Impression: No scan evidence of active gastrointestinal bleeding at this time. Signed by: Dr. Dionne Chow M.D. on 10/18/2019 7:45 PM
--- NOTE | 2019-10-18 20:41 | NUR ---
MD [facility] CONTACT VIA TELEPHONE @ [phone] GIVEN PATIENT RESULT OF GI BLEED SCAN NM, NO ORDERS GIVEN AT THIS TIME
--- NOTE | 2019-10-19 01:42 | Discharge Summary ---
See also ER note, and history and physical. The patient presented with no significant symptoms, although outpatient hemoglobin was 4.6. ER hemoglobin was 4.3. Over 3 days, the patient received 5 units of packed cells. She was seen by her alley worker, who ordered iron infusions. She was seen by her breaker table worker and the patient underwent EGD. See op note of October 16 with some blood in the oropharynx. No actively bleeding lesion could be delineated. Questionable AVMs, distal esophagus fulgurated. Small hiatal hernia. Gastric polyps biopsied. Path pending. Course was complicated on arrival by low-grade fever 100 degrees. The patient had pyuria. She was given a dose of cephalosporin while here. She had no fever after initial elevated temperature finding in the emergency room. History has included overactive bladder, depression, peptic ulcer disease, GERD, chronic recurrent epistaxis, lifelong. No documented prior diagnosis of multiple AVMs. Sinusitis here last hospitalization, see old hospitalization EMR. The patient has had prior nasal surgery. She had seen Dr. Burger for several years, but recently changed ENT physicians because of her insurance. She has also seen Dr. Enriquez ([facility]), who kindly saw the patient this admission. His notes indicate prior bone marrow, recently was not malignant. B12 level was low at 217 and the patient was given B12 while here. The patient had a low iron saturation at 3. Cultures, urine, blood per EMR. Blood cultures negative. Low level bacteria on culture. Mixed sendy in urine, treated as above. This patient had a low-grade fever on admission. Hemoglobin 10 g on October 17. Retic count 1.7 on October 14. Indices low. Platelet count, white count normal. PTT 21.4 on October 15. INR 1.08 on October 15. The patient did receive one dose of vitamin K subcu while here 10 mg. Admission INR was 1.13 with a pro-time of 15. Urinalysis; red cells 6-10, white cells 11-20 per high-power field with dipstick 1+ leukocyte esterase. Negative nitrites. Hemoccult negative. Negative influenza type A and B antigen. Negative group A strep screen throat. Protein electrophoresis pending. Natriuretic peptide 108. TSH 2.6. Admission chemistries normal. Low iron 14, TIBC 421. Percent sat low as mentioned at 3. IMPRESSION: Chronic recurrent severe anemia. Arteriovenous malformations on endoscopy, treated. Recurrent epistaxis with long history of ENT procedures and treatments. Pyuria, treated. Low-grade fever on admission, resolved after arrival. Gastric polyps. Overactive bladder. Depression. Onychomycosis. Chronic mild speech defect. The patient will follow up with her new ENT physician on an outpatient basis. She will follow up with GI and with myself regarding pending path report. Medications per discharge med reconciliation. Prognosis guarded. MD DARWIN Galan/MODL /[id number]
[2019-10-19 04:12] VITALS: BP 145/78
[2019-10-19 04:13] VITALS: BP 145/78
[2019-10-19 05:35] LABS: HEMATOCRIT 36.7 % (34.2-44.1); HEMOGLOBIN 10.5 g/dL (12.0-16.0)
[2019-10-19 08:01] VITALS: BP 145/78
--- NOTE | 2019-10-19 09:00 | NUR ---
dr. noble paged to see if patient can discharge. clarified discharge with consults- okay to d/c with follow up to hematology and ENT. information relayed to patient and home health aide.
--- NOTE | 2019-10-19 10:00 | NUR ---
patient discharged. IV access removed- bleeding controlled and dressing applied. Telemetry box removed and returned. Prescriptions called into [facility] per home health aide request as she will picking the prescriptions up for patient. patient wheeled off unit to [employer] vehicle in stable condition with all belongings. patient aware that she needs to follow up with Dr. Moreno, her choice of ENT, and Dr. Smith
== END 2019-10-19 10:20 | disposition home or self-care (01) | DRG 812 ==
LOC: ER 15:46 → ERHOLD 17:16 → MED/SURG 18:09
PROVIDERS: ADMIT Internal Medicine; ATTEND Internal Medicine
PROC: 30233N1 Transfusion of Nonautologous Red Blood Cells into Peripheral Vein, Percutaneous Approach (ICD-10-PCS; 2019-10-15)
PROC: 0D538ZZ Destruction of Lower Esophagus, Via Natural or Artificial Opening Endoscopic (ICD-10-PCS; principal; 2019-10-17 16:00)
PROC: 0DB68ZX Excision of Stomach, Via Natural or Artificial Opening Endoscopic, Diagnostic (ICD-10-PCS; 2019-10-17 16:00)
DX: D50.9 Iron deficiency anemia, unspecified (principal); K21.9 Gastro-esophageal reflux disease without esophagitis; M19.90 Unspecified osteoarthritis, unspecified site; F31.9 Bipolar disorder, unspecified; Z82.49 Family history of ischemic heart disease and other diseases of the circulatory system; K31.7 Polyp of stomach and duodenum; K44.9 Diaphragmatic hernia without obstruction or gangrene; K55.20 Angiodysplasia of colon without hemorrhage; E66.9 Obesity, unspecified; Z68.38 Body mass index [BMI] 38.0-38.9, adult; I73.9 Peripheral vascular disease, unspecified; D51.3 Other dietary vitamin B12 deficiency anemia; R04.0 Epistaxis; N32.81 Overactive bladder; B35.1 Tinea unguium; R47.9 Unspecified speech disturbances; R50.9 Fever, unspecified; G20 Parkinson's disease
CPT/HCPCS: 36415; 71045; 78278; 80048; 80053; 81001; 82270; 82550; 82553; 82607; 82728; 82746; 83518; 83540; 83880; 84165; 84443; 84466; 84484; 85014; 85018; 85025; 85045; 85610; 85730; 86850; 86900; 86920; 87040; 87070; 87086; 87400; 88305; 88312; 93005; 99284; A9512; J0696; J1940; J2916; J3420; J7050; P9016

== ENCOUNTER 2020-03-13 09:26 | Emergency (ER) | payer MEDICARE ==
[~2020-03-13] VITALS: Ht 160 cm; Wt 97.5 kg
--- NOTE | 2020-03-13 09:36 | Emergency Department Note ---
History of Present Illnes History of Present Illness Chief Complaint: Eye, Ear, Nose, Throat, Dental History of Present Illness This is a 64 year old female Chief Complaint Comment NOSE BLEED AT 4 AM. CALLED 911 FOR NOSE BLEED. NO BLEEDING ON ARRIVAL OF EMS OR TO ER. AAOX4. . 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 Any updates have been documented here. Past Medical History Recent Fever: No Clinical Suspicion of Infectio: No New/Unexplained Change in Ment: No Past Medical History: Anemia, GERD Other Medical History: ANEMIA FREQUENT NOSE BLEEDS arthritis Manic depression [place] Other Surgery: CYST REMOVAL ( head, back neck and back) Other Last Tetanus: UNK Review of Systems Review of Systems Constitutional: Reports no symptoms EENTM: Reports other (Nose bleed) Cardiovascular: Reports no symptoms Respiratory: Reports no symptoms Gastrointestinal: Reports no symptoms Genitourinary: Reports no symptoms Musculoskeletal: Reports no symptoms Integumentary: Reports no symptoms Neurological: Reports no symptoms Psychological: Reports no symptoms Endocrine: Reports no symptoms Hematological/Lymphatic: Reports no symptoms Physical Exam Related Data Allergies: Coded Allergies: No Known Allergies (Unverified , 03/20/11) Triage Vital Signs Vital Signs Date Time Temp Pulse Resp B/P (MAP) Pulse Ox O2 Delivery O2 Flow Rate FiO2 03/13/20 09:28 98.4 110 18 122/69 100 Room Air Vital signs reviewed: Yes Physical Exam CONSTITUTIONAL Constitutional: Present well-developed, Present well-nourished HENT HENT: Present normocephalic, Present atraumatic, Present mucosae dry, Present other (Dried blood in nares bilaterally. Dried blood to posterior oropharynx) HENT L/R: Present left ext ear normal, Present right ext ear normal EYES Eyes: Reports PERRL, Reports conjunctivae normal NECK Neck: Present ROM normal PULMONARY Pulmonary: Present effort normal, Present breath sounds normal CARDIOVASCULAR Cardiovascular: Present regular rhythm, Present heart sounds normal, Present capillary refill normal, Present normal rate GASTROINTESTINAL Abdominal: Present soft, Present nontender, Present bowel sounds normal GENITOURINARY Genitourinary: Present exam deferred SKIN Skin: Present warm, Present dry MUSCULOSKELETAL Musculoskeletal: Present ROM normal NEUROLOGICAL Neurological: Present alert, Present oriented x 3, Present no gross motor or sensory deficits PSYCHOLOGICAL Psychological: Present mood/affect normal, Present judgement normal Results Laboratory Lab results reviewed: Yes Assessment & Plan Medical Decision Making MDM 64-year-old female with a history of recurrent nosebleeds. She has required transfusion in the past. Laboratory workup and coags are . She was given 500cc NS for dry appearing mucous membranes. Laboratory workup shows no significant anemia and her hemoglobin appears to be at baseline. Examination is otherwise unremarkable and patient has had no further nasal bleeding. I discussed results with patient and she will follow up with her primary care provider or return to the emergency department for new or worsening symptoms. Patient is appropriate for discharge. Part of this note was dictated with Violet and is subject to recognition errors. Reassessment Reassessment time: 10:46 Reassessment Well appearing, NAD Assessment & Plan Final Impression: (1) Epistaxis Depart Disposition: HOME, SELF-CARE Last Vital Signs Date Time Temp Pulse Resp B/P (MAP) Pulse Ox O2 Delivery O2 Flow Rate FiO2 03/13/20 09:28 98.4 110 18 122/69 100 Room Air Home Meds Reported Medications Amoxicillin/Potassium Clav (AUGMENTIN 500-125 TABLET) 1 Each Tablet, 500 MG PO TID, #15 TAB 02/10/19 Oxymetazoline Hcl (NASAL SPRAY) 30 Ml [place], 1 SPR NA BID PRN for SINUS 02/08/19 Fexofenadine Hcl (ALLERGY RELIEF) 180 Mg Tablet, 1 TAB PO DAILY 02/08/19 Calcium Carbonate/Vitamin D3 (OS-YAIR 500+D TABLET) 1 Each Tablet, 1 TAB PO DAILY, #30 TAB 02/08/19 Bacitracin (BACITRACIN) 15 Gm Oint...g., 1 DOSE TOP QID, #1 BOTTLE 02/08/19 Oxymetazoline Hcl (NASAL SPRAY) 30 Ml [place], 1 SPR NA QID 02/08/19 Oxybutynin Chloride (OXYBUTYNIN CHLORIDE) 5 Mg Tablet, 5 MG PO BID, #30 TAB 12/26/17 Venlafaxine Hcl (VENLAFAXINE HCL) 75 Mg Tab, 75 MG PO TID, #30 TAB 12/26/17 KEILY SAUNDERS MD Mar 13, 2020 09:36
[2020-03-13] MEDS ORDERED: SODIUM CHLORIDE 0.9% 500ML 500 ML IV ONE ×2 (10:00→11:00)
--- OUTSIDE RECORDS SUMMARY | 2020-03-13 10:22 | XMS REPORT | Continuity of Care Document ---
Author Author [facility] t Organization [facility] Address [address] [place] [address] Phone Unavailable Care Team Providers Care Innersole Maker Name Role Phone JOSE M WHEATLEY MD PCP JOSE M WHEATLEY Attphypepper Unavailable Dakota DAWSON Attphys Unavailable JOSE M WHEATLEY Admruby Unavailable Payers Payer Name Policy Type Policy Number Effective Date Expiration Date [employer] Medicare Replacement [id number] 2018 00:00:00 [facility] [employer] Medicare [id number] 2017 00:00:00 [facility] Problems Condition Name Condition Details Condition Category Status Onset Date Resolution Date Last Treatment Date Treating Clinician Comments Source Chronic anemia Chronic anemia Problem Active [facility] Secondary anemia Symptomatic anemia Problem Active [facility] Allergies, Adverse Reactions, Alerts This patient has no known allergies or adverse reactions. Medications Ordered Medication Name Filled Medication Name Start Date Stop Da te Current Medication? Ordering Clinician Indication Dosage Frequency Signature (SIG) Comments Components Source Amoxicillin/Potassium Clav (Augmentin 500-125 Tablet) 1 Each Tablet Amoxicillin/Potassium Clav (Augmentin 500-125 Tablet) 1 Each Tablet Yes 500 Three Times A Day [facility] Bacitracin 15 Gm Oint...g. Bacitracin 15 Gm Oint...g. Yes 1 Four Times Daily [facility] Calcium Carbonate/Vitamin D3 (Os-Kobi 500+D Tablet) 1 E ach Tablet Calcium Carbonate/Vitamin D3 (Os-Kobi 500+D Tablet) 1 Each Tablet Yes 1 Daily [facility] Fexofenadine Hcl (Allergy Relief) 180 Mg Tablet Fexofe amanda Hcl (Allergy Relief) 180 Mg Tablet Yes 1 Daily [facility] Oxybutynin Chloride 5 Mg Tablet Oxybutynin Chloride 5 Mg Tablet Yes 5 Twice A Day [facility] Oxymetazoline Hcl (Nasal [place]) 30 Ml [place] Oxymetazol ine Hcl (Nasal [place]) 30 Ml [place] Yes 1 Four Times Daily [facility] Oxymetazoline Hcl (Nasal [place]) 30 Ml [place] Oxymetazol ine Hcl (Nasal [place]) 30 Ml [place] Yes 1 Twice A Day as needed for Sin us [facility] Venlafaxine Hcl 75 Mg Tab Venlafaxine Hcl 75 Mg Tab Yes 75 Three Times A Day [facility] Vilas-3 Fatty Acids/Fish Oil (Fish Oil 1,200 Mg Softge l) 1 Each Capsule, Vilas-3 Fatty Acids/Fish Oil (Fish Oil 1,200 Mg Softgel) 1 Each Capsule, 2019-10-18 00:00:00 No Daily [facility] Omeprazole 40 Mg Capsule., 40 Mg Oral Omeprazole 40 Mg Cap jose maria., 40 Mg Oral 2019-10-18 00:00:00 No 40 Daily [facility] Procedures Procedure Date / Time Performed Performing Clinician [facility] e EGD with biopsy 2019-10-17 00:00:00 JAVIER MELENDEZ [facility] X-ray of chest, two views 2019-02-08 00:00:00 OLIMPIA NANCE [facility] Encounters Start Date/Time End Date/Time Encounter Type Admission Type [facility] Facility Care Department Encounter ID Source 2019-10-15 17:16:00 2019-10-19 10:20:00 Discharged Inpatient 1 CORRY JOSE M [facility] [id number] [facility] 2019-02-08 18:01:00 2019-02-10 18:05:00 Discharged Inpatient (obs) 1 JOSE M WHEATLEY [facility] [id number] [facility] 2018-06-23 12:57:00 2018-06-23 16:54:00 Departed Emergency Room 1 STEVEN DAWSON [facility] [id number] [facility] 2017-12-25 23:36:00 2017-12-27 10:40:00 Discharged Inpatient (obs) 1 JOSE M WHEATLEY [facility] [id number] [facility] Results Test Description Test Time Test Comments Results Result Comments Source Hemoglobin 2019-10-19 05:37:00 Test Item Hemoglobin (test code = 09676-7) 10.5 12.0-16.0 L [facility] HospitalHematocrit2020-03-18 05:37:00* Test Item Value Reference Range Interpretation Comments Hematocrit (test code = 4544-3) 36.7 34.2-44.1 [facility] HospitalFolate2020-03-18 05:19:00* Test Item Value Reference Range Interpretation Comments Folate (test code = 2284-8) 11.3 >3.0 A serum folate concentration of less than 3.1 ng/mL isconsidered to represent cl inical deficiency.Performed at: HD - [facility] [address] [id number] Director: Roman Alvarez MD, Phone: [phone] Hermann Northeast HospitalG I SIZXB7666-02-06 19:45:00 [facility] [address] [place] [address] Patient Name: FLY MILES MR #: [id number] : 1955 Age/Sex: 64/F Req #: [id number] Adm Physician: JOSE M WHEATLEY MD Ordered by: JAVIER MELENDEZ MD Report #: [id number] Location: MED/SURG Room/Bed: [facility] Procedure: [id number] NM/G I BLEED Exam Date: 10/18/19 Exam Time: 1630 REPORT STATUS: Signed Tagged-RBC GI Bleed Study Clinical information: 64-year-old female with anemia. Di scussion: The patient's own red blood cells were labeled with 25 mCi of techne tium-99m pertechnetate using the in vitro method (UltraTag). Dynamic images o f the abdomen were obtained through 60 minutes. Distribution of tracer acti vity appears physiologic throughout the abdomen. No abnormal accumulation of tracer is seen within the gastrointestinal lumen. Impression: No scan evidence of active gastrointestinal bleeding at this time. Signed by: Dr. Merrick Chow M.D. on 10/18/2019 7:45 PM Dictated By: MERRICK CHOW MD Simona ctronically Signed By: MERRICK CHOW MD on 10/18/191944 Transcribed By: DAMARIS on 10/18/191944 COPY TO: JAVIER MELENDEZ MD Blood Culture 2019-10-18 16:35:00* Test Item Value Reference Range Interpretation Comments Blood Culture (test code = 67168307) NO GROWTH AFTER 72 HOURS [facility] Hrmwb2163-47-88 12:18:00* Test Item Value Reference Range Interpretation Comments Stool Occult Blood (test code = 2335-8) NEGATIVE NEGATIVE [facility] HospitalVitamin B12 Jlsze9624-34-09 09:39:00* Test Item Value Reference Range Interpretation Comments Vitamin B12 Level (test code = 43075-6) 217 213-816 [facility] HospitalFerritin2020-03-15 09:34:00* Test Item Value Reference Range Interpretation Comments Ferritin (test code = 2276-4) 1.75 4.63-204.00 L [facility] HospitalIron Gngvz2214-09-80 09:19:00* Test Item Value Reference Range Interpretation Comments Iron Level (test code = 2498-4) 100 50-170 [facility] HospitalTotal Iron Binding Ctpbbgql5000-29-87 09:19:00* Test Item Value Reference Range Interpretation Comments Total Iron Binding Capacity (test code = 2500-7) 392 261-4 78 [facility] HospitalPercent Iron Dvdqbwxhxi5618-24-17 09:19:00* Test Item Value Reference Range Interpretation Comments Percent Iron Saturation (test code = 2502-3) 26 15-50 [facility] HospitalTransferrin2020-03-15 09:19:00* Test Item Value Reference Range Interpretation Comments Transferrin (test code = 3034-6) 280 180-382 [facility] HospitalB-Type Natriuretic Qtvwaxu8248-40-12 08:46:00* Test Item Value Reference Range Interpretation Comments B-Type Natriuretic Peptide (test code = 89599-5) 108.4 0-100 H [facility] HospitalCreatine Kinase NV8554-35-44 08:46:00* Test Item Value Reference Range Interpretation Comments Creatine Kinase MB (test code = 97839-8) 2.00 0-5.0 [facility] HospitalTroponin E5890-23-70 08:46:00* Test Item Value Reference Range Interpretation Comments Troponin I (test code = LIP1308) 0.012 0-0.300 [facility] HospitalCreatine Jrshvv0020-36-27 08:39:00* Test Item Value Reference Range Interpretation Comments Creatine Kinase (test code = 2157-6) 67 29-168 [facility] HospitalActivated Partial Thromboplast Time 2019-10-16 08:38:00* Test Item Value Reference Range Interpretation Comments Activated Partial Thromboplast Time (test code = 05234-7) 21.4 23.8-35.5 L [facility] Centerodium Efcki4739-20-94 08:38:00* Test Item Value Reference Range Interpretation Comments Sodium Level (test code = 2951-2) 141 136-145 [facility] HospitalPotassium Quvqj1754-64-20 08:38:00* Test Item Value Reference Range Interpretation Comments Potassium Level (test code = 2823-3) 3.4 3.5-5.1 L [facility] HospitalChloride Tdnca4310-75-95 08:38:00* Test Item Value Reference Range Interpretation Comments Chloride Level (test code = 2075-0) 105 98-107 [facility] HospitalCarbon Dioxide Ubuhj5795-95-31 08:38:00* Test Item Value Reference Range Interpretation Comments Carbon Dioxide Level (test code = 2028-9) 30 22-29 H [facility] HospitalAnion Zoz4097-30-90 08:38:00* Test Item Value Reference Range Interpretation Comments Anion Gap (test code = 43268-7) 9.4 8-16 [facility] HospitalBlood Urea Rfhrwjbi8360-75-76 08:38:00* Test Item Value Reference Range Interpretation Comments Blood Urea Nitrogen (test code = 3094-0) 10 7-26 [facility] HospitalCreatinine2020-03-15 08:38:00* Test Item Value Reference Range Interpretation Comments Creatinine (test code = 2160-0) 0.61 0.57-1.11 [facility] HospitalBUN/Creatinine Llwqe6346-54-12 08:38:00* Test Item Value Reference Range Interpretation Comments BUN/Creatinine Ratio (test code = 3097-3) 16 6-25 [facility] HospitalEstimat Glomerular Filtration Rate 2019-10-16 08:38:00* Test Item Value Reference Range Interpretation Comments Estimat Glomerular Filtration Rate (test code = 220515726) > 60 >60 Ranges were taken from the National Kidney Disease Education Program and the [facility] literature.Reference ranges:60 or greater: Hwoxfi24-65 ( for 3 consecutive months): Chronic kidney disease 15 or less: Kidney failureMemorial Hermann Northeast HospitalGlucose Qearg5992-62-22 08:38:00* Test Item Value Reference Range Interpretation Comments Glucose Level (test code = IXO5083) 90 74-118 [facility] HospitalCalcium Srfaq9074-34-29 08:38:00* Test Item Value Reference Range Interpretation Comments Calcium Level (test code = 65721-2) 9.1 8.4-10.2 [facility] HospitalProthrombin Qfdh8906-59-26 08:35:00* Test Item Value Reference Range Interpretation Comments Prothrombin Time (test code = 5902-2) 14.7 11.9-14.5 H [facility] HospitalProthromb Time International Ratio 2019-10-16 08:35:00* Test Item Value Reference Range Interpretation Comments Prothromb Time International Ratio (test code = 6301-6) 1.08 Oral Anticoagulant Therapy INR Values:1. Low Intensity Therapy 1.5 - 2.02 . Moderate Intensity Therapy 2.0 - 3.03. High Intensity Therapy(1) 2.5 - 3. 54. High Intensity Therapy(2) 3.0 - 4.05. Panic Value INR > 5.0 [facility] HospitalPercent Reticulocyte Gknlz3567-23-32 08:23:00* Test Item Value Reference Range Interpretation Comments Percent Reticulocyte Count (test code = 49698-6) 1.0 0.8-2 .2 [facility] HospitalWhite Blood Rgdvc5504-11-93 08:21:00* Test Item Value Reference Range Interpretation Comments White Blood Count (test code = 6690-2) 5.97 4.8-10.8 [facility] HospitalRed Blood Enyie3606-41-41 08:21:00* Test Item Value Reference Range Interpretation Comments Red Blood Count (test code = 789-8) 3.81 3.6-5.1 [facility] HospitalMean Corpuscular Hjspqs4993-13-36 08:21:00* Test Item Value Reference Range Interpretation Comments Mean Corpuscular Volume (test code = 787-2) 70.6 81-99 L [facility] HospitalMean Corpuscular Snqflkeowu1010-48-53 08:21:00* Test Item Value Reference Range Interpretation Comments Mean Corpuscular Hemoglobin (test code = 785-6) 20.2 28-32 L [facility] HospitalMean Corpuscular Hemoglobin Concent 2019-10-16 08:21:00* Test Item Value Reference Range Interpretation Comments Mean Corpuscular Hemoglobin Concent (test code = 786-4) 28.6 31-35 L [facility] HospitalRed Cell Distribution Zeldi1471-00-03 08:21:00* Test Item Value Reference Range Interpretation Comments Red Cell Distribution Width (test code = 37296-8) 21.8 11.7 -14.4 H [facility] HospitalPlatelet Kkoiw0433-09-59 08:21:00* Test Item Value Reference Range Interpretation Comments Platelet Count (test code = 777-3) 273 140-360 [facility] HospitalNeutrophils (%) (Auto)2019-10-16 08:21:00 * Test Item Value Reference Range Interpretation Comments Neutrophils (%) (Auto) (test code = 44882-2) 69.0 38.7-80.0 [facility] HospitalLymphocytes (%) (Auto)2019-10-16 08:21:00 * Test Item Value Reference Range Interpretation Comments Lymphocytes (%) (Auto) (test code = 736-9) 13.9 18.0-39.1 L [facility] HospitalMonocytes (%) (Auto)2019-10-16 08:21:00* Test Item Value Reference Range Interpretation Comments Monocytes (%) (Auto) (test code = 5905-5) 12.7 4.4-11.3 H [facility] HospitalEosinophils (%) (Auto)2019-10-16 08:21:00 * Test Item Value Reference Range Interpretation Comments Eosinophils (%) (Auto) (test code = 713-8) 2.7 0.0-6.0 [facility] HospitalBasophils (%) (Auto)2019-10-16 08:21:00* Test Item Value Reference Range Interpretation Comments Basophils (%) (Auto) (test code = 706-2) 0.7 0.0-1.0 [facility] HospitalIM GRANULOCYTES %2019-10-16 08:21:00* Test Item Value Reference Range Interpretation Comments IM GRANULOCYTES % (test code = IM GRANULOCYTES %) 1.0 0.0- 1.0 [facility] HospitalNeutrophils # (Auto)2019-10-16 08:21:00* Test Item Value Reference Range Interpretation Comments Neutrophils # (Auto) (test code = 751-8) 4.1 2.1-6.9 [facility] HospitalLymphocytes # (Auto)2019-10-16 08:21:00* Test Item Value Reference Range Interpretation Comments Lymphocytes # (Auto) (test code = 76198-8) 0.8 1.0-3.2 L [facility] HospitalMonocytes # (Auto)2019-10-16 08:21:00* Test Item Value Reference Range Interpretation Comments Monocytes # (Auto) (test code = 742-7) 0.8 0.2-0.8 [facility] HospitalEosinophils # (Auto)2019-10-16 08:21:00* Test Item Value Reference Range Interpretation Comments Eosinophils # (Auto) (test code = 711-2) 0.2 0.0-0.4 [facility] HospitalBasophils # (Auto)2019-10-16 08:21:00* Test Item Value Reference Range Interpretation Comments Basophils # (Auto) (test code = 704-7) 0.0 0.0-0.1 [facility] HospitalAbsolute Immature Granulocyte (auto 2019-10-16 08:21:00* Test Item Value Reference Range Interpretation Comments Absolute Immature Granulocyte (auto (arianna t code = Absolute Immature Granulocyte (auto) 0.06 0-0.1 [facility] HospitalUrine Iaiwx4451-73-48 18:16:00* Test Item Value Reference Range Interpretation Comments Urine Color (test code = 5778-6) YELLOW YELLOW [facility] HospitalUrine Rihshcl1522-66-53 18:16:00* Test Item Value Reference Range Interpretation Comments Urine Clarity (test code = 56997-0) HAZY CLEAR [facility] HospitalUrine Specific Jdmyawo0127-41-98 18:16:00 * Test Item Value Reference Range Interpretation Comments Urine Specific [place] (test code = 5811-5) 1.020 1.010-1.02 5 [facility] HospitalUrine nS9289-68-32 18:16:00* Test Item Value Reference Range Interpretation Comments Urine pH (test code = 78299-4) 7 5-7 [facility] HospitalUrine Leukocyte Quxjjuaf0248-58-68 18:16:00* Test Item Value Reference Range Interpretation Comments Urine Leukocyte Esterase (test code = 5799-2) 1+ NEGATIVE H [facility] Svkbmpg4307-67-44 18:16:00* Test Item Value Reference Range Interpretation Comments Urine Nitrite (test code = 17434-4) NEGATIVE NEGATIVE [facility] HospitalUrine Cpogkas0173-63-96 18:16:00* Test Item Value Reference Range Interpretation Comments Urine Protein (test code = 5804-0) NEGATIVE NEGATIVE [facility] Glucose (UA)2019-10-15 18:16:00* Test Item Value Reference Range Interpretation Comments Urine Glucose (UA) (test code = 2349-9) NEGATIVE NEGATIVE [facility] Rzynzaw2557-57-26 18:16:00* Test Item Value Reference Range Interpretation Comments Urine Ketones (test code = 52094-0) NEGATIVE NEGATIVE [facility] Virpbjjrzowq5872-57-21 18:16:00* Test Item Value Reference Range Interpretation Comments Urine Urobilinogen (test code = 36833-6) 1 0.2-1 [facility] Pbijzjpyy3443-41-63 18:16:00* Test Item Value Reference Range Interpretation Comments Urine Bilirubin (test code = 1978-6) NEGATIVE NEGATIVE [facility] Dfhii4271-79-35 18:16:00* Test Item Value Reference Range Interpretation Comments Urine Blood (test code = 31107-2) NEGATIVE NEGATIVE [facility] HospitalUrine UXB0778-60-24 18:16:00* Test Item Value Reference Range Interpretation Comments Urine WBC (test code = 5821-4) 11-20 0-5 H [facility] SDC6310-91-49 18:16:00* Test Item Value Reference Range Interpretation Comments Urine RBC (test code = 18311-5) 6-10 0-5 H [facility] Wgvikvcw1153-17-45 18:16:00* Test Item Value Reference Range Interpretation Comments Urine Bacteria (test code = 83121-9) FEW NONE [facility] Epithelial Jqihf7095-56-55 18:16:00 * Test Item Value Reference Range Interpretation Comments Urine Epithelial Cells (test code = 76159-1) FEW NONE [facility] HospitalInfluenza Virus Types A,B Antigen 2019-10-15 17:46:00* Test Item Value Reference Range Interpretation Comments Influenza Virus Types A,B Antigen (test code = 64744-2) NEGATIVE NEGATIVE [facility] HospitalThyroid Stimulating Hormone (TSH) 2019-10-15 17:44:00* Test Item Value Reference Range Interpretation Comments Thyroid Stimulating Hormone (TSH) (test code = 88131-8) 2.643 0.350-4.940 [facility] HospitalGroup A Streptococcus Wvfovx9011-37-43 17:32:00* Test Item Value Reference Range Interpretation Comments Group A Streptococcus Screen (test code = 85771-3) NEGATIVE NEG ATIVE [facility] HospitalPlatelet Yxvgnqzo1869-25-22 17:25:00* Test Item Value Reference Range Interpretation Comments Platelet Estimate (test code = 06802-8) ADEQUATE [facility] HospitalPlatelet Morphology Fegvvzj5824-60-78 17:25:00* Test Item Value Reference Range Interpretation Comments Platelet Morphology Comment (test code = 07124-3) NORMAL [facility] HospitalHypochromasia2020-03-14 17:25:00* Test Item Value Reference Range Interpretation Comments Hypochromasia (test code = 728-6) SLIGHT [facility] HospitalAnisocytosis2020-03-14 17:25:00* Test Item Value Reference Range Interpretation Comments Anisocytosis (test code = 702-1) SLIGHT [facility] HospitalMicrocytosis2020-03-14 17:25:00* Test Item Value Reference Range Interpretation Comments Microcytosis (test code = 741-9) SLIGHT [facility] HospitalOvalocytes2020-03-14 17:25:00* Test Item Value Reference Range Interpretation Comments Ovalocytes (test code = 774-0) FEW [facility] HospitalTotal Ichxeubuo6868-43-30 17:02:00* Test Item Value Reference Range Interpretation Comments Total Bilirubin (test code = 1975-2) 0.4 0.2-1.2 [facility] HospitalAspartate Amino Transf (AST/SGOT) 2019-10-15 17:02:00* Test Item Value Reference Range Interpretation Comments Aspartate Amino Transf (AST/SGOT) (test code = Aspartate Amino Transf (AST/SGOT)) 15 5-34 [facility] HospitalAlanine Aminotransferase (ALT/SGPT) 2019-10-15 17:02:00* Test Item Value Reference Range Interpretation Comments Alanine Aminotransferase (ALT/SGPT) (test code = 1742-6) 12 0-55 [facility] HospitalTotal Wgwasaf9618-71-95 17:02:00* Test Item Value Reference Range Interpretation Comments Total Protein (test code = 2885-2) 6.7 6.5-8.1 [facility] HospitalAlbumin2020-03-14 17:02:00* Test Item Value Reference Range Interpretation Comments Albumin (test code = 1751-7) 3.7 3.5-5.0 [facility] HospitalGlobulin2020-03-14 17:02:00* Test Item Value Reference Range Interpretation Comments Globulin (test code = 28149-7) 3.0 2.3-3.5 [facility] HospitalAlbumin/Globulin Vvpgy8922-17-76 17:02:00 * Test Item Value Reference Range Interpretation Comments Albumin/Globulin Ratio (test code = 1759-0) 1.2 0.8-2.0 [facility] HospitalAlkaline Ahutkqnrfrl2586-23-90 17:02:00* Test Item Value Reference Range Interpretation Comments Alkaline Phosphatase (test code = 6768-6) 65 40-150 [facility] HospitalCHEST SINGLE (PORTABLE)2019-10-15 16:47:00 [place] [address] Patient Name: FLY MILES MR #: [id number] : 1955 Age/Sex: 64/F Req #: [id number] Adm Physician: Ordered by: CHERYL DAVIS MD Report #: [id number] Location: ER Room/Bed: Procedure: [id number] DX /CHEST SINGLE (PORTABLE) Exam Date: 10/15/19 Exam Ti me: 1630 REPORT STATUS: Signed E xamination: Single AP view of the chest. COMPARISON: Chest 2 views 02/08/2019 INDICATION: Anemia, fever IMPRESSION: 1. Lines and Tubes: None 2. Lungs are well-inflated. Stable calcified granuloma in the right uppe r lobe. Minimal bibasilar atelectatic changes. No consolidation or effusion. 3. Mild prominence of the cardiac silhouette, which may be partly due to por table AP projection. Pulmonary vasculature is normal. 4. No acute bony abno rmalities. Signed by: Dr. Kike Albright M.D. on 10/15/2019 4:48 PM Dictated By: KIKE ALBRIGHT MD 47 Transcribed By: DAMARIS on 10/15/191647 COPY TO: CHERYL DAVIS MD Sodium Pyfnl0218-93-94 06:23:00* Test Item Value Reference Range Interpretation Comments Sodium Level (test code = 2951-2) 141 136-145 [facility] HospitalPotassium Mvzem3853-35-02 06:23:00* Test Item Value Reference Range Interpretation Comments Potassium Level (test code = 2823-3) 3.7 3.5-5.1 [facility] HospitalChloride Komdk3472-47-58 06:23:00* Test Item Value Reference Range Interpretation Comments Chloride Level (test code = 2075-0) 111 98-107 H [facility] HospitalCarbon Dioxide Otvar9158-12-51 06:23:00* Test Item Value Reference Range Interpretation Comments Carbon Dioxide Level (test code = 2028-04) 25 22-29 [facility] HospitalAnion Ibn5316-26-97 06:23:00* Test Item Value Reference Range Interpretation Comments Anion Gap (test code = 93585-6) 8.7 8-16 [facility] HospitalBlood Urea Aemygqcm2398-91-13 06:23:00* Test Item Value Reference Range Interpretation Comments Blood Urea Nitrogen (test code = 3094-0) 9 7-26 [facility] HospitalCreatinine2019-07-11 06:23:00* Test Item Value Reference Range Interpretation Comments Creatinine (test code = 2160-0) 0.57 0.57-1.11 [facility] HospitalBUN/Creatinine Hahui0135-37-52 06:23:00* Test Item Value Reference Range Interpretation Comments BUN/Creatinine Ratio (test code = 3097-3) 16 01-25 [facility] HospitalEstimat Glomerular Filtration Rate 2019-02-10 06:23:00* Test Item Value Reference Range Interpretation Comments Estimat Glomerular Filtration Rate (test code = 116643297) > 60 >60 Ranges were taken from the National Kidney Disease Education Program and the [facility] Kidney Foundation literature.Reference ranges:60 or greater: Yartnt50-40 ( for 3 consecutive months): Chronic kidney disease 15 or less: Kidney failureMemorial Hermann Northeast HospitalGlucose Vdcyh4219-07-40 06:23:00* Test Item Value Reference Range Interpretation Comments Glucose Level (test code = YVO6750) 99 74-118 [facility] HospitalCalcium Tajyf7471-56-85 06:23:00* Test Item Value Reference Range Interpretation Comments Calcium Level (test code = 15947-6) 8.6 8.4-10.2 [facility] HospitalWhite Blood Xhhub6208-28-60 06:01:00* Test Item Value Reference Range Interpretation Comments White Blood Count (test code = 6690-2) 6.46 4.8-10.8 [facility] HospitalRed Blood Hewtk1602-76-34 06:01:00* Test Item Value Reference Range Interpretation Comments Red Blood Count (test code = 789-8) 3.93 3.6-5.1 [facility] HospitalHemoglobin2019-07-11 06:01:00* Test Item Value Reference Range Interpretation Comments Hemoglobin (test code = 00971-7) 9.1 12.0-16.0 L [facility] HospitalHematocrit2019-07-11 06:01:00* Test Item Value Reference Range Interpretation Comments Hematocrit (test code = 4544-3) 31.5 34.2-44.1 L [facility] HospitalMean Corpuscular Ociblw7810-34-56 06:01:00* Test Item Value Reference Range Interpretation Comments Mean Corpuscular Volume (test code = 787-2) 80.2 81-99 L [facility] HospitalMean Corpuscular Znhuqxcsuj0174-99-59 06:01:00* Test Item Value Reference Range Interpretation Comments Mean Corpuscular Hemoglobin (test code = 785-6) 23.2 28-32 L [facility] HospitalMean Corpuscular Hemoglobin Concent 2019-02-10 06:01:00* Test Item Value Reference Range Interpretation Comments Mean Corpuscular Hemoglobin Concent (test code = 786-4) 28.9 31-35 L [facility] HospitalRed Cell Distribution Taoyk2805-84-80 06:01:00* Test Item Value Reference Range Interpretation Comments Red Cell Distribution Width (test code = 00567-1) 18.1 11.7 -14.4 H [facility] HospitalPlatelet Pmsfe6506-43-21 06:01:00* Test Item Value Reference Range Interpretation Comments Platelet Count (test code = 777-3) 176 140-360 [facility] HospitalNeutrophils (%) (Auto)2019-02-10 06:01:00 * Test Item Value Reference Range Interpretation Comments Neutrophils (%) (Auto) (test code = 11577-9) 55.8 38.7-80.0 [facility] HospitalLymphocytes (%) (Auto)2019-02-10 06:01:00 * Test Item Value Reference Range Interpretation Comments Lymphocytes (%) (Auto) (test code = 736-9) 20.0 18.0-39.1 [facility] HospitalMonocytes (%) (Auto)2019-02-10 06:01:00* Test Item Value Reference Range Interpretation Comments Monocytes (%) (Auto) (test code = 5905-5) 12.4 4.4-11.3 H [facility] HospitalEosinophils (%) (Auto)2019-02-10 06:01:00 * Test Item Value Reference Range Interpretation Comments Eosinophils (%) (Auto) (test code = 713-8) 8.2 0.0-6.0 H [facility] HospitalBasophils (%) (Auto)2019-02-10 06:01:00* Test Item Value Reference Range Interpretation Comments Basophils (%) (Auto) (test code = 706-2) 1.1 0.0-1.0 H [facility] HospitalIM GRANULOCYTES %2019-02-10 06:01:00* Test Item Value Reference Range Interpretation Comments IM GRANULOCYTES % (test code = IM GRANULOCYTES %) 2.5 0.0- 1.0 H [facility] HospitalNeutrophils # (Auto)2019-02-10 06:01:00* Test Item Value Reference Range Interpretation Comments Neutrophils # (Auto) (test code = 751-8) 3.6 2.1-6.9 [facility] HospitalLymphocytes # (Auto)2019-02-10 06:01:00* Test Item Value Reference Range Interpretation Comments Lymphocytes # (Auto) (test code = 80402-1) 1.3 1.0-3.2 [facility] HospitalMonocytes # (Auto)2019-02-10 06:01:00* Test Item Value Reference Range Interpretation Comments Monocytes # (Auto) (test code = 742-7) 0.8 0.2-0.8 [facility] HospitalEosinophils # (Auto)2019-02-10 06:01:00* Test Item Value Reference Range Interpretation Comments Eosinophils # (Auto) (test code = 711-2) 0.5 0.0-0.4 H [facility] HospitalBasophils # (Auto)2019-02-10 06:01:00* Test Item Value Reference Range Interpretation Comments Basophils # (Auto) (test code = 704-7) 0.1 0.0-0.1 [facility] HospitalAbsolute Immature Granulocyte (auto 2019-02-10 06:01:00* Test Item Value Reference Range Interpretation Comments Absolute Immature Granulocyte (auto (arianna t code = Absolute Immature Granulocyte (auto) 0.16 0-0.1 H [facility] HospitalBlood Djycbct2815-15-99 20:42:00* Test Item Value Reference Range Interpretation Comments Blood Culture (test code = 77562833) NO GROWTH AFTER 24 HOURS [facility] 0ACRMI1623-42-14 20:17:00 [facility] [address] [address] Patient Name: FLY MILES MR #: [id number] : 1955 Age/Sex: 63/F Req #: [id number] Adm Physician: JOSE M WHEATLEY MD Ordered by: JOSE M WHEATLEY MD Report #: [id number] Location: MED/SURG Room/Bed: [facility] Procedure: [id number] DX/SINUSES (PARANASAL)MIN 3VIEWS Exam Date: 02/09/19 Exam Time: 0735 REPORT STATUS: Si gned SINUSES (PARANASAL)MIN 3VIEWS - 3 views HISTORY: Acute on chronic sinusitis. COMPARISON: None available. FINDINGS: Bones: Paranasal sinuses: Mild increased density in the right maxillary sinus without air-fluid levels. Remainder of aerated paranasal sinuses are clear. No acute displac ed fracture. Osseous alignment is within normal limits. Joints: The j oint spaces are well-maintained. Soft tissues: Possible intracranial calc ifications rectal region vertex. IMPRESSION: Possible right maxillary sinusitis in the proper clinical setting. Signed by: Dr. Alison amaral M.D. on 02/09/2019 8:19 PM Dictated By: JUSTIN ACEVES MD, MD Electro nically Signed By: JUSTIN ACEVES MD, MD on 02/09/192018 Transcribed By: HORACIO Lam on 02/09/192018 COPY TO: JOSE M WHEATLEY MD Total Bilirubin 2019-02-09 08:30:00* Test Item Value Reference Range Interpretation Comments Total Bilirubin (test code = 1975-2) 0.9 0.2-1.2 [facility] HospitalAspartate Amino Transf (AST/SGOT) 2019-02-09 08:30:00* Test Item Value Reference Range Interpretation Comments Aspartate Amino Transf (AST/SGOT) (test code = Aspartate Amino Transf (AST/SGOT)) 26 5-34 [facility] HospitalAlanine Aminotransferase (ALT/SGPT) 2019-02-09 08:30:00* Test Item Value Reference Range Interpretation Comments Alanine Aminotransferase (ALT/SGPT) (test code = 1742-6) 19 0-55 [facility] HospitalTotal Uzjfuju3247-28-80 08:30:00* Test Item Value Reference Range Interpretation Comments Total Protein (test code = 2885-2) 5.5 6.5-8.1 L [facility] HospitalAlbumin2019-07-10 08:30:00* Test Item Value Reference Range Interpretation Comments Albumin (test code = 1751-7) 2.7 3.5-5.0 L [facility] HospitalGlobulin2019-07-10 08:30:00* Test Item Value Reference Range Interpretation Comments Globulin (test code = 47078-6) 2.8 2.3-3.5 [facility] HospitalAlbumin/Globulin Vlwxv6080-24-69 08:30:00 * Test Item Value Reference Range Interpretation Comments Albumin/Globulin Ratio (test code = 1759-0) 1.0 0.8-2.0 [facility] HospitalAlkaline Kwqhfivuzxu7092-51-67 08:30:00* Test Item Value Reference Range Interpretation Comments Alkaline Phosphatase (test code = 6768-6) 69 40-150 [facility] HospitalIron Ilqmy7363-28-94 18:40:00* Test Item Value Reference Range Interpretation Comments Iron Level (test code = 2498-4) 123 50-170 [facility] HospitalTotal Iron Binding Tskjbhdh2135-61-93 18:40:00* Test Item Value Reference Range Interpretation Comments Total Iron Binding Capacity (test code = 2500-7) 332 261-4 78 [facility] HospitalPercent Iron Grcgnvkiir2385-36-14 18:40:00* Test Item Value Reference Range Interpretation Comments Percent Iron Saturation (test code = 2502-3) 37 15-50 [facility] HospitalTransferrin2019-07-09 18:40:00* Test Item Value Reference Range Interpretation Comments Transferrin (test code = 3034-6) 237 180-382 [facility] HospitalUrine IVW5812-34-90 15:54:00* Test Item Value Reference Range Interpretation Comments Urine WBC (test code = 5821-4) NONE 0-5 [facility] HospitalUrine TNO3982-35-82 15:54:00* Test Item Value Reference Range Interpretation Comments Urine RBC (test code = 63094-7) NONE 0-5 [facility] HospitalUrine Mavuefhm5550-53-19 15:54:00* Test Item Value Reference Range Interpretation Comments Urine Bacteria (test code = 99857-1) NONE NONE [facility] HospitalUrine Epithelial Mbcmw8511-71-44 15:54:00 * Test Item Value Reference Range Interpretation Comments Urine Epithelial Cells (test code = 82533-2) NONE NONE [facility] HospitalUrine Mcest0624-97-65 15:50:00* Test Item Value Reference Range Interpretation Comments Urine Color (test code = 5778-6) YELLOW YELLOW [facility] HospitalUrine Zbagyno7258-88-81 15:50:00* Test Item Value Reference Range Interpretation Comments Urine Clarity (test code = 52158-5) CLEAR CLEAR [facility] HospitalUrine Specific Rvvffob2985-29-16 15:50:00 * Test Item Value Reference Range Interpretation Comments Urine Specific [place] (test code = 5811-5) <=1.005 1.010-1.02 5 [facility] HospitalUrine gH5789-46-31 15:50:00* Test Item Value Reference Range Interpretation Comments Urine pH (test code = 12038-0) 7 5-7 [facility] HospitalUrine Leukocyte Hmvvzaao6888-09-84 15:50:00* Test Item Value Reference Range Interpretation Comments Urine Leukocyte Esterase (test code = 36316-8) NEGATIVE NEGATIV E [facility] HospitalUrine Cmasdpd8660-15-94 15:50:00* Test Item Value Reference Range Interpretation Comments Urine Nitrite (test code = 13774-5) NEGATIVE NEGATIVE [facility] HospitalUrine Dcvoweo7358-86-34 15:50:00* Test Item Value Reference Range Interpretation Comments Urine Protein (test code = 74057-0) NEGATIVE NEGATIVE [facility] HospitalUrine Glucose (UA)2019-02-08 15:50:00* Test Item Value Reference Range Interpretation Comments Urine Glucose (UA) (test code = 89447-6) NEGATIVE NEGATIVE [facility] HospitalUrine Qxqpfhy1149-54-57 15:50:00* Test Item Value Reference Range Interpretation Comments Urine Ketones (test code = 05155-5) NEGATIVE NEGATIVE [facility] HospitalUrine Gjgikqpvkbsi2188-11-62 15:50:00* Test Item Value Reference Range Interpretation Comments Urine Urobilinogen (test code = 19288-4) 0.2 0.2-1 [facility] HospitalUrine Tdwcscdmx2959-10-88 15:50:00* Test Item Value Reference Range Interpretation Comments Urine Bilirubin (test code = 1977-8) NEGATIVE NEGATIVE [facility] HospitalUrine Zuwey8173-44-86 15:50:00* Test Item Value Reference Range Interpretation Comments Urine Blood (test code = 52844-0) NEGATIVE NEGATIVE [facility] HospitalCHEST 2 JBBOZ1145-92-19 14:45:00 [facility] [address] [place] [address] Patient Name: FLY MILES MR #: [id number] : 1955 Age/Sex: 63/F Req #: [id number] Adm Physician: Ordered by: OLIMPIA NANCE MD Report #: [id number] Location: ER Room/Bed: Procedure: [id number] DX/CHEST 2 VIEWS Exam Date: Exam Time: REPORT STATUS: Signed PROCEDURE: X-RAY CHES T, TWO VIEWS COMPARISON: 06/23/2018. INDICATIONS: FEVER AND COUGH FIN DINGS: The lungs are well-inflated. Minimal linear opacity in the left l karen base compatible with subsegmental atelectasis. No airspace consolidati on, pleural effusion, or pneumothorax. Tortuous thoracic aorta with athero sclerotic calcification. Normal heart size. Interval resolution of interstiti al pulmonary edema relative to 06/23/2018. Right apical calcified granuloma u nchanged. No acute osseous abnormality. Multilevel degenerative disc roper es of the thoracic spine. CONCLUSION: Trace subsegmental atelectas is in the left lung base. Otherwise no acute cardiopulmonary abnormality. Dictated by: Triston Poe M.D. on 02/08/2019 at 14:45 Electronically a pproved by: Tirston Poe M.D. on 02/08/2019 at 14:45 Dictated By: TRISTON POE MD 1445 T ranscribed By: JAMES on 02/08/19 8330 COPY TO: OLIMPIA NANCE MD Prothrombin Ytdf4745-25-02 13:56:00* Test Item Value Reference Range Interpretation Comments Prothrombin Time (test code = 5902-2) 14.8 11.9-14.5 [facility] International Ratio 2019-02-08 13:56:00* Test Item Value Reference Range Interpretation Comments Prothromb Time International Ratio (test code = 6301-6) 1.11 Oral Anticoagulant Therapy INR Values:1. Low Intensity Therapy 1.5 - 2.02 . Moderate Intensity Therapy 2.0 - 3.03. High Intensity Therapy(1) 2.5 - 3. 54. High Intensity Therapy(2) 3.0 - 4.05. Panic Value INR > 5.0 [facility] HospitalActivated Partial Thromboplast Time 2019-02-08 13:56:00* Test Item Value Reference Range Interpretation Comments Activated Partial Thromboplast Time (test code = 26497-0) 33.9 23.8-35.5 [facility] HospitalB-Type Natriuretic Ktpwklt1375-54-26 14:43:00* Test Item Value Reference Range Interpretation Comments B-Type Natriuretic Peptide (test code = 18245-8) 12.1 0-100 [facility] HospitalB-Type Natriuretic Jjtmlbk5714-65-35 14:43:00* Test Item Value Reference Range Interpretation Comments B-Type Natriuretic Peptide (test code = 94888-6) 12.1 0-100 [facility] HospitalCreatine Kinase EA2878-58-98 14:35:00* Test Item Value Reference Range Interpretation Comments Creatine Kinase MB (test code = 71373-8) 2.30 0-5.0 [facility] HospitalTroponin D1317-17-78 14:35:00* Test Item Value Reference Range Interpretation Comments Troponin I (test code = MJY3718) 0.016 0-0.300 [facility] HospitalCreatine Kinase XH3167-48-36 14:35:00* Test Item Value Reference Range Interpretation Comments Creatine Kinase MB (test code = 19359-6) 2.30 0-5.0 [place] 36395018-11-21 14:35:00* Test Item Value Reference Range Interpretation Comments Troponin I (test code = RYU3831) 0.016 0-0.300 [facility] Centerodium Vjzql1709-53-04 14:28:00* Test Item Value Reference Range Interpretation Comments Sodium Level (test code = 2951-2) 137 136-145 [facility] HospitalPotassium Xlpit4411-48-63 14:28:00* Test Item Value Reference Range Interpretation Comments Potassium Level (test code = 2823-3) 4.1 3.5-5.1 [facility] HospitalChloride Rtqlm2521-28-32 14:28:00* Test Item Value Reference Range Interpretation Comments Chloride Level (test code = 2075-0) 108 98-107 H [facility] HospitalCarbon Dioxide Qayki2507-35-87 14:28:00* Test Item Value Reference Range Interpretation Comments Carbon Dioxide Level (test code = 2028-9) 21 22-29 L [facility] HospitalAnion Pwf1460-74-57 14:28:00* Test Item Value Reference Range Interpretation Comments Anion Gap (test code = 42684-9) 12.1 8-16 [facility] HospitalBlood Urea Wnllwnri3271-41-34 14:28:00* Test Item Value Reference Range Interpretation Comments Blood Urea Nitrogen (test code = 3094-0) 13 7-26 [facility] HospitalCreatinine2018-11-21 14:28:00* Test Item Value Reference Range Interpretation Comments Creatinine (test code = 2160-0) 0.68 0.57-1.11 [facility] HospitalBUN/Creatinine Umvom4251-52-81 14:28:00* Test Item Value Reference Range Interpretation Comments BUN/Creatinine Ratio (test code = 3097-3) 19 6-25 [facility] HospitalEstimat Glomerular Filtration Rate 2018-06-23 14:28:00* Test Item Value Reference Range Interpretation Comments Estimat Glomerular Filtration Rate (test code = 937063458) > 60 >60 Ranges were taken from the National Kidney Disease Education Program and the [facility] literature.Reference ranges:60 or greater: Dmfizg38-03 ( for 3 consecutive months): Chronic kidney disease 15 or less: Kidney failureMemorial Hermann Northeast HospitalGlucose Gjttg6628-05-21 14:28:00* Test Item Value Reference Range Interpretation Comments Glucose Level (test code = OIM7245) 104 74-118 [facility] HospitalCalcium Nwxym9286-25-07 14:28:00* Test Item Value Reference Range Interpretation Comments Calcium Level (test code = 61032-7) 8.3 8.4-10.2 L [facility] HospitalTotal Zhuyuhngu0423-54-65 14:28:00* Test Item Value Reference Range Interpretation Comments Total Bilirubin (test code = 1975-2) 0.2 0.2-1.2 [facility] HospitalAspartate Amino Transf (AST/SGOT) 2018-06-23 14:28:00* Test Item Value Reference Range Interpretation Comments Aspartate Amino Transf (AST/SGOT) (test code = Aspartate Amino Transf (AST/SGOT)) 34 5-34 [facility] HospitalAlanine Aminotransferase (ALT/SGPT) 2018-06-23 14:28:00* Test Item Value Reference Range Interpretation Comments Alanine Aminotransferase (ALT/SGPT) (test code = 1742-6) 16 0-55 [facility] HospitalTotal Qyepbka1315-22-09 14:28:00* Test Item Value Reference Range Interpretation Comments Total Protein (test code = 2885-2) 5.8 6.5-8.1 L [facility] HospitalAlbumin2018-11-21 14:28:00* Test Item Value Reference Range Interpretation Comments Albumin (test code = 1751-7) 2.8 3.5-5.0 L [facility] HospitalGlobulin2018-11-21 14:28:00* Test Item Value Reference Range Interpretation Comments Globulin (test code = 15688-8) 3.0 2.3-3.5 [facility] HospitalAlbumin/Globulin Buybv3987-21-73 14:28:00 * Test Item Value Reference Range Interpretation Comments Albumin/Globulin Ratio (test code = 1759-0) 0.9 0.8-2.0 [facility] HospitalAlkaline Bcnxfojfffs7945-48-99 14:28:00* Test Item Value Reference Range Interpretation Comments Alkaline Phosphatase (test code = 6768-6) 61 40-150 [facility] HospitalCreatine Xhpafk6396-74-89 14:28:00* Test Item Value Reference Range Interpretation Comments Creatine Kinase (test code = 2157-6) 91 29-168 [facility] HospitalCreatine Exhftu4539-21-43 14:28:00* Test Item Value Reference Range Interpretation Comments Creatine Kinase (test code = 2157-6) 91 29-168 [facility] HospitalProthrombin Bxvp2239-40-97 14:20:00* Test Item Value Reference Range Interpretation Comments Prothrombin Time (test code = 5902-2) 14.8 11.9-14.5 H [facility] HospitalProthromb Time International Ratio 2018-06-23 14:20:00* Test Item Value Reference Range Interpretation Comments Prothromb Time International Ratio (test code = 6301-6) 1.06 Oral Anticoagulant Therapy INR Values:1. Low Intensity Therapy 1.5 - 2.02 . Moderate Intensity Therapy 2.0 - 3.03. High Intensity Therapy(1) 2.5 - 3. 54. High Intensity Therapy(2) 3.0 - 4.05. Panic Value INR > 5.0 [facility] HospitalActivated Partial Thromboplast Time 2018-06-23 14:20:00* Test Item Value Reference Range Interpretation Comments Activated Partial Thromboplast Time (test code = 19135-5) 26.7 23.8-35.5 [facility] HospitalCHEST SINGLE (PORTABLE)2018-06-23 14:16:00 [place] [address] Patient Name: FLY MILES MR #: [id number] : 1955 Age/Sex: 62/F Req #: [id number] Adm Physician: Ordered by: STEVEN DAWSON MD Report #: [id number] Location: ER Room/Bed: Procedure: [id number] DX/CH EST SINGLE (PORTABLE) Exam Date: 06/23/18 Exam Time: 1330 REPORT STATUS: Signed Exam ination: Single AP view of the chest. COMPARISON: December 27, 2017 INDICAT ION: Evaluate for congestive heart failure DISCUSSION: Lines/tube s: None. Lungs: Pulmonary venous congestion with mild edema. Scattered ca lcified granuloma. Pleura: There is no pleural effusion or pneumothorax. Heart and mediastinum: The heart and the mediastinum are unremarkable. Bones and soft tissues: No acute bony abnormalities. IMPRESSION: Pulmonary venous congestion and mild interstitial edema. Signed by: Dr. Julito Petersen M.D. on 06/23/2018 2:19 PM Dictated By: JULITO PETERSEN MD 18 Transcribed By: DAMARIS on 06/23/181418 COPY TO: STEVEN DAWSON MD White Blood Yilrn7962-27-09 14:04:00* Test Item Value Reference Range Interpretation Comments White Blood Count (test code = 6690-2) 8.21 4.8-10.8 [facility] HospitalRed Blood Itykp5760-03-87 14:04:00* Test Item Value Reference Range Interpretation Comments Red Blood Count (test code = 789-8) 3.84 3.6-5.1 [facility] HospitalHemoglobin2018-11-21 14:04:00* Test Item Value Reference Range Interpretation Comments Hemoglobin (test code = 86901-9) 9.4 12.0-16.0 L [facility] HospitalHematocrit2018-11-21 14:04:00* Test Item Value Reference Range Interpretation Comments Hematocrit (test code = 4544-3) 32.5 34.2-44.1 L [facility] HospitalMean Corpuscular Tuiqjj9601-91-54 14:04:00* Test Item Value Reference Range Interpretation Comments Mean Corpuscular Volume (test code = 787-2) 84.6 81-99 [facility] HospitalMean Corpuscular Dvwntcuzsz9454-64-88 14:04:00* Test Item Value Reference Range Interpretation Comments Mean Corpuscular Hemoglobin (test code = 785-6) 24.5 28-32 L [facility] HospitalMean Corpuscular Hemoglobin Concent 2018-06-23 14:04:00* Test Item Value Reference Range Interpretation Comments Mean Corpuscular Hemoglobin Concent (test code = 786-4) 28.9 31-35 L [facility] HospitalRed Cell Distribution Abeld0760-01-39 14:04:00* Test Item Value Reference Range Interpretation Comments Red Cell Distribution Width (test code = 51538-7) 22.5 11.7 -14.4 H [facility] HospitalPlatelet Hncqb5888-72-76 14:04:00* Test Item Value Reference Range Interpretation Comments Platelet Count (test code = 777-3) 220 140-360 [facility] HospitalNeutrophils (%) (Auto)2018-06-23 14:04:00 * Test Item Value Reference Range Interpretation Comments Neutrophils (%) (Auto) (test code = 76536-2) 83.7 38.7-80.0 H [facility] HospitalLymphocytes (%) (Auto)2018-06-23 14:04:00 * Test Item Value Reference Range Interpretation Comments Lymphocytes (%) (Auto) (test code = 736-9) 9.6 18.0-39.1 L [facility] HospitalMonocytes (%) (Auto)2018-06-23 14:04:00* Test Item Value Reference Range Interpretation Comments Monocytes (%) (Auto) (test code = 5905-5) 5.1 4.4-11.3 [facility] HospitalEosinophils (%) (Auto)2018-06-23 14:04:00 * Test Item Value Reference Range Interpretation Comments Eosinophils (%) (Auto) (test code = 713-8) 0.9 0.0-6.0 [facility] HospitalBasophils (%) (Auto)2018-06-23 14:04:00* Test Item Value Reference Range Interpretation Comments Basophils (%) (Auto) (test code = 706-2) 0.1 0.0-1.0 [facility] HospitalIM GRANULOCYTES %2018-06-23 14:04:00* Test Item Value Reference Range Interpretation Comments IM GRANULOCYTES % (test code = IM GRANULOCYTES %) 0.6 0.0- 1.0 [facility] HospitalNeutrophils # (Auto)2018-06-23 14:04:00* Test Item Value Reference Range Interpretation Comments Neutrophils # (Auto) (test code = 751-8) 6.9 2.1-6.9 [facility] HospitalLymphocytes # (Auto)2018-06-23 14:04:00* Test Item Value Reference Range Interpretation Comments Lymphocytes # (Auto) (test code = 05251-8) 0.8 1.0-3.2 L [facility] HospitalMonocytes # (Auto)2018-06-23 14:04:00* Test Item Value Reference Range Interpretation Comments Monocytes # (Auto) (test code = 742-7) 0.4 0.2-0.8 [facility] HospitalEosinophils # (Auto)2018-06-23 14:04:00* Test Item Value Reference Range Interpretation Comments Eosinophils # (Auto) (test code = 711-2) 0.1 0.0-0.4 [facility] HospitalBasophils # (Auto)2018-06-23 14:04:00* Test Item Value Reference Range Interpretation Comments Basophils # (Auto) (test code = 704-7) 0.0 0.0-0.1 [facility] HospitalAbsolute Immature Granulocyte (auto 2018-06-23 14:04:00* Test Item Value Reference Range Interpretation Comments Absolute Immature Granulocyte (auto (arianna t code = Absolute Immature Granulocyte (auto) 0.05 0-0.1 [facility] HospitalPlatelet Lisndyjt8933-44-59 11:20:00* Test Item Value Reference Range Interpretation Comments Platelet Estimate (test code = 46715-3) ADEQUATE [facility] HospitalPlatelet Morphology Shpqjyc7344-35-61 11:20:00* Test Item Value Reference Range Interpretation Comments Platelet Morphology Comment (test code = 27931-6) NORMAL [facility] HospitalHypochromasia2018-05-27 11:20:00* Test Item Value Reference Range Interpretation Comments Hypochromasia (test code = 728-6) SLIGHT [facility] HospitalAnisocytosis2018-[facility] 11:20:00* Test Item Value Reference Range Interpretation Comments Anisocytosis (test code = 702-1) SLIGHT [facility] HospitalMicrocytosis2018-05-27 11:20:00* Test Item Value Reference Range Interpretation Comments Microcytosis (test code = 741-9) SLIGHT [facility] HospitalRed Cell Morphology Yadeqer3934-34-00 11:20:00* Test Item Value Reference Range Interpretation Comments Red Cell Morphology Comment (test code = 6742-1) NORMAL [facility] HospitalB-Type Natriuretic Kygimhy7784-33-36 08:56:00* Test Item Value Reference Range Interpretation Comments B-Type Natriuretic Peptide (test code = 47680-5) 55.5 0-100 [facility] Dipum9655-10-02 08:36:00* Test Item Value Reference Range Interpretation Comments Sodium Level (test code = 2951-2) 141 136-145 [facility] HospitalPotassium Mcufu8608-56-25 08:36:00* Test Item Value Reference Range Interpretation Comments Potassium Level (test code = 2823-3) 3.6 3.5-5.1 [facility] HospitalChloride Dzdfx4820-64-46 08:36:00* Test Item Value Reference Range Interpretation Comments Chloride Level (test code = 2075-0) 106 98-107 [facility] HospitalCarbon Dioxide Bbcxa6575-56-70 08:36:00* Test Item Value Reference Range Interpretation Comments Carbon Dioxide Level (test code = 2028-9) 25 22-29 [facility] HospitalAnion Wpp6663-81-84 08:36:00* Test Item Value Reference Range Interpretation Comments Anion Gap (test code = 98273-9) 13.6 8-16 [facility] HospitalBlood Urea Nopqnpiw4086-60-25 08:36:00* Test Item Value Reference Range Interpretation Comments Blood Urea Nitrogen (test code = 3094-0) 9 7-26 [facility] HospitalCreatinine2018-05-27 08:36:00* Test Item Value Reference Range Interpretation Comments Creatinine (test code = 2160-0) 0.67 0.57-1.11 [facility] HospitalBUN/Creatinine Fkzec7368-76-70 08:36:00* Test Item Value Reference Range Interpretation Comments BUN/Creatinine Ratio (test code = 3097-3) 13 - [facility] HospitalEstimat Glomerular Filtration Rate 2017-12-27 08:36:00* Test Item Value Reference Range Interpretation Comments Estimat Glomerular Filtration Rate (test code = 43186-2) 60- >60 Ranges were taken from the National Kidney Disease Education Program and the [facility] Kidney Foundation literature.Reference ranges:60 or greater: Dbjlit68-49 ( for 3 consecutive months): Chronic kidney disease 15 or less: Kidney failureMemorial Hermann Northeast HospitalGlucose Naqgk5386-09-49 08:36:00* Test Item Value Reference Range Interpretation Comments Glucose Level (test code = WJE5395) 103 74-118 [facility] HospitalCalcium Sxmzi3342-46-11 08:36:00* Test Item Value Reference Range Interpretation Comments Calcium Level (test code = 47527-1) 9.3 8.4-10.2 [facility] HospitalWhite Blood Uqdds9091-52-03 08:23:00* Test Item Value Reference Range Interpretation Comments White Blood Count (test code = 6690-2) 6.70 4.8-10.8 [facility] HospitalRed Blood Yqgxi0939-83-75 08:23:00* Test Item Value Reference Range Interpretation Comments Red Blood Count (test code = 789-8) 5.17 3.6-5.1 H [facility] HospitalHemoglobin2018-05-27 08:23:00* Test Item Value Reference Range Interpretation Comments Hemoglobin (test code = 02624-7) 10.5 12.0-16.0 L [facility] HospitalHematocrit2018-05-27 08:23:00* Test Item Value Reference Range Interpretation Comments Hematocrit (test code = 4544-3) 34.9 34.2-44.1 [facility] HospitalMean Corpuscular Qmnuwm3564-91-80 08:23:00* Test Item Value Reference Range Interpretation Comments Mean Corpuscular Volume (test code = 787-2) 67.5 81-99 L [facility] HospitalMean Corpuscular Kdvuodwloh1919-65-99 08:23:00* Test Item Value Reference Range Interpretation Comments Mean Corpuscular Hemoglobin (test code = 785-6) 20.3 28-32 L [facility] HospitalMean Corpuscular Hemoglobin Concent 2017-12-27 08:23:00* Test Item Value Reference Range Interpretation Comments Mean Corpuscular Hemoglobin Concent (test code = 786-4) 30.1 31-35 L [facility] HospitalRed Cell Distribution Iqjcl8588-79-61 08:23:00* Test Item Value Reference Range Interpretation Comments Red Cell Distribution Width (test code = 11641-7) 22.4 11.7 -14.4 H [facility] HospitalPlatelet Zscur8958-06-17 08:23:00* Test Item Value Reference Range Interpretation Comments Platelet Count (test code = 777-3) 238 140-360 [facility] HospitalNeutrophils (%) (Auto)2017-12-27 08:23:00 * Test Item Value Reference Range Interpretation Comments Neutrophils (%) (Auto) (test code = 78668-9) 69.4 38.7-80.0 [facility] HospitalLymphocytes (%) (Auto)2017-12-27 08:23:00 * Test Item Value Reference Range Interpretation Comments Lymphocytes (%) (Auto) (test code = 736-9) 16.3 18.0-39.1 L [facility] HospitalMonocytes (%) (Auto)2017-12-27 08:23:00* Test Item Value Reference Range Interpretation Comments Monocytes (%) (Auto) (test code = 5905-5) 9.7 4.4-11.3 [facility] HospitalEosinophils (%) (Auto)2017-12-27 08:23:00 * Test Item Value Reference Range Interpretation Comments Eosinophils (%) (Auto) (test code = 713-8) 2.8 0.0-6.0 [facility] HospitalBasophils (%) (Auto)2017-12-27 08:23:00* Test Item Value Reference Range Interpretation Comments Basophils (%) (Auto) (test code = 706-2) 0.6 0.0-1.0 [facility] HospitalIM GRANULOCYTES %2017-12-27 08:23:00* Test Item Value Reference Range Interpretation Comments IM GRANULOCYTES % (test code = IM GRANULOCYTES %) 1.2 0.0- 1.0 H [facility] HospitalNeutrophils # (Auto)2017-12-27 08:23:00* Test Item Value Reference Range Interpretation Comments Neutrophils # (Auto) (test code = 751-8) 4.7 2.1-6.9 [facility] HospitalLymphocytes # (Auto)2017-12-27 08:23:00* Test Item Value Reference Range Interpretation Comments Lymphocytes # (Auto) (test code = 03539-8) 1.1 1.0-3.2 [facility] HospitalMonocytes # (Auto)2017-12-27 08:23:00* Test Item Value Reference Range Interpretation Comments Monocytes # (Auto) (test code = 742-7) 0.7 0.2-0.8 [facility] HospitalEosinophils # (Auto)2017-12-27 08:23:00* Test Item Value Reference Range Interpretation Comments Eosinophils # (Auto) (test code = 711-2) 0.2 0.0-0.4 [facility] HospitalBasophils # (Auto)2017-12-27 08:23:00* Test Item Value Reference Range Interpretation Comments Basophils # (Auto) (test code = 704-7) 0.0 0.0-0.1 [facility] HospitalAbsolute Immature Granulocyte (auto 2017-12-27 08:23:00* Test Item Value Reference Range Interpretation Comments Absolute Immature Granulocyte (auto (arianna t code = Absolute Immature Granulocyte (auto) 0.08 0-0.1 [facility] Centertool Occult Vmlgg4591-55-22 03:59:00* Test Item Value Reference Range Interpretation Comments Stool Occult Blood (test code = 2335-8) NEGATIVE NEGATIVE [facility] Occult Xmuhx0032-77-55 03:59:00* Test Item Value Reference Range Interpretation Comments Stool Occult Blood (test code = 2335-8) NEGATIVE NEGATIVE [facility] HospitalVitamin B12 Aztiy5928-31-34 20:07:00* Test Item Value Reference Range Interpretation Comments Vitamin B12 Level (test code = 63834-2) 244 213-816 [facility] HospitalFolate2018-05-26 20:07:00* Test Item Value Reference Range Interpretation Comments Folate (test code = 2284-8) 11.7 7.0-15.4 [facility] HospitalVitamin B12 Ijcwh7630-49-37 20:07:00* Test Item Value Reference Range Interpretation Comments Vitamin B12 Level (test code = 42179-9) 244 213-816 [facility] HospitalFolate2018-05-26 20:07:00* Test Item Value Reference Range Interpretation Comments Folate (test code = 2284-8) 11.7 7.0-15.4 [facility] HospitalErythrocyte Sedimentation Rxbk2331-25-54 20:06:00* Test Item Value Reference Range Interpretation Comments Erythrocyte Sedimentation Rate (test code = 4537-7) 13 0- 20 [facility] HospitalErythrocyte Sedimentation Utmq5251-23-08 20:06:00* Test Item Value Reference Range Interpretation Comments Erythrocyte Sedimentation Rate (test code = 4537-7) 13 0- 20 [facility] HospitalFerritin2018-05-26 19:24:00* Test Item Value Reference Range Interpretation Comments Ferritin (test code = 2276-4) 3.85 4.63-204.00 L [facility] HospitalFerritin2018-05-26 19:24:00* Test Item Value Reference Range Interpretation Comments Ferritin (test code = 2276-4) 3.85 4.63-204.00 L [facility]Per[facility] Reticulocyte Kyhlt8685-34-31 18:36:00* Test Item Value Reference Range Interpretation Comments Percent Reticulocyte Count (test code = 26406-1) 1.2 0.8-2 .2 [facility] Reticulocyte Wsyvf9188-24-88 18:36:00* Test Item Value Reference Range Interpretation Comments Percent Reticulocyte Count (test code = 43623-7) 1.2 0.8-2 .2 [facility] HospitalThyroid Stimulating Hormone (TSH) 2017-12-26 14:48:00* Test Item Value Reference Range Interpretation Comments Thyroid Stimulating Hormone (TSH) (test code = 88729-8) 1.910 0.350-4.940 [facility] HospitalThyroid Stimulating Hormone (TSH) 2017-12-26 14:48:00* Test Item Value Reference Range Interpretation Comments Thyroid Stimulating Hormone (TSH) (test code = 75855-5) 1.910 0.350-4.940 [facility] HospitalIron Lydia2513-12-71 14:14:00* Test Item Value Reference Range Interpretation Comments Iron Level (test code = 2498-4) 194 50-170 H [facility] HospitalTo[facility] Iron Binding Dnxyrnhb0973-12-09 14:14:00* Test Item Value Reference Range Interpretation Comments Total Iron Binding Capacity (test code = 2500-7) 379 261-4 78 [facility] Iron Hjyayjtlhy5676-68-07 14:14:00* Test Item Value Reference Range Interpretation Comments Percent Iron Saturation (test code = 2502-3) 51 15-50 H [facility] HospitalTransferrin2018-05-26 14:14:00* Test Item Value Reference Range Interpretation Comments Transferrin (test code = 3034-6) 271 180-382 [facility] HospitalTotal Nkeicdvms6108-62-53 14:14:00* Test Item Value Reference Range Interpretation Comments Total Bilirubin (test code = 1975-2) 1.6 0.2-1.2 H [facility] HospitalAspartate Amino Transf (AST/SGOT) 2017-12-26 14:14:00* Test Item Value Reference Range Interpretation Comments Aspartate Amino Transf (AST/SGOT) (test code = Aspartate Amino Transf (AST/SGOT)) 15 5-34 [facility] HospitalAlanine Aminotransferase (ALT/SGPT) 2017-12-26 14:14:00* Test Item Value Reference Range Interpretation Comments Alanine Aminotransferase (ALT/SGPT) (test code = 1742-6) 15 0-55 [facility] HospitalTotal Gjtujvf1865-68-86 14:14:00* Test Item Value Reference Range Interpretation Comments Total Protein (test code = 2885-2) 6.1 6.5-8.1 L [facility] HospitalAlbumin2018-05-26 14:14:00* Test Item Value Reference Range Interpretation Comments Albumin (test code = 1751-7) 3.3 3.5-5.0 L [facility] HospitalGlobulin2018-05-26 14:14:00* Test Item Value Reference Range Interpretation Comments Globulin (test code = 67455-7) 2.8 2.3-3.5 [facility] HospitalAlbumin/Globulin Ohbky5733-18-78 14:14:00 * Test Item Value Reference Range Interpretation Comments Albumin/Globulin Ratio (test code = 1759-0) 1.2 0.8-2.0 [facility] HospitalAlkaline Etlaozaqxwh2214-56-73 14:14:00* Test Item Value Reference Range Interpretation Comments Alkaline Phosphatase (test code = 6768-6) 55 40-150 [facility] HospitalIron Kkrpp6070-52-82 14:14:00* Test Item Value Reference Range Interpretation Comments Iron Level (test code = 2498-4) 194 50-170 H [facility] HospitalTotal Iron Binding Xyzcibhu4122-48-19 14:14:00* Test Item Value Reference Range Interpretation Comments Total Iron Binding Capacity (test code = 2500-7) 379 261-4 78 [facility] HospitalPercent Iron Bmwtqzzhxr2755-21-07 14:14:00* Test Item Value Reference Range Interpretation Comments Percent Iron Saturation (test code = 2502-3) 51 15-50 H [facility] HospitalTransferrin2018-05-26 14:14:00* Test Item Value Reference Range Interpretation Comments Transferrin (test code = 3034-6) 271 180-382 [facility] HospitalProthrombin Nirc4165-50-37 00:16:00* Test Item Value Reference Range Interpretation Comments Prothrombin Time (test code = 5902-2) 14.6 11.9-14.5 H [facility] HospitalProthromb Time International Ratio 2017-12-26 00:16:00* Test Item Value Reference Range Interpretation Comments Prothromb Time International Ratio (test code = 6301-6) 1.23 Oral Anticoagulant Therapy INR Values:1. Low Intensity Therapy 1.5 - 2.02 . Moderate Intensity Therapy 2.0 - 3.03. High Intensity Therapy(1) 2.5 - 3. 54. High Intensity Therapy(2) 3.0 - 4.05. Panic Value INR > 5.0 [facility] HospitalActivated Partial Thromboplast Time 2017-12-26 00:16:00* Test Item Value Reference Range Interpretation Comments Activated Partial Thromboplast Time (test code = 39567-5) 32.1 23.8-35.5 [facility] HospitalUrine YDM8105-83-28 21:38:00* Test Item Value Reference Range Interpretation Comments Urine WBC (test code = 5821-4) 21-50 0-5 H [facility] HospitalUrine QKE0848-18-42 21:38:00* Test Item Value Reference Range Interpretation Comments Urine RBC (test code = 12767-4) 0-5 0-5 [facility] HospitalUrine Rbtyqpha0510-76-51 21:38:00* Test Item Value Reference Range Interpretation Comments Urine Bacteria (test code = 72508-4) FEW NONE [facility] HospitalUrine Epithelial Enyds4541-52-61 21:38:00 * Test Item Value Reference Range Interpretation Comments Urine Epithelial Cells (test code = 76682-3) RARE NONE [facility] HospitalUrine Owysf1571-16-67 21:38:00* Test Item Value Reference Range Interpretation Comments Urine Mucus (test code = 8247-9) FEW RARE H [facility] HospitalUrine LYF7938-83-79 21:38:00* Test Item Value Reference Range Interpretation Comments Urine WBC (test code = 5821-4) 21-50 0-5 H [facility] HospitalUrine DXL2799-07-30 21:38:00* Test Item Value Reference Range Interpretation Comments Urine RBC (test code = 50089-0) 0-5 0-5 [facility] HospitalUrine Ruvmhsim5027-29-05 21:38:00* Test Item Value Reference Range Interpretation Comments Urine Bacteria (test code = 16632-5) FEW NONE [facility] HospitalUrine Epithelial Wujjq8257-50-27 21:38:00 * Test Item Value Reference Range Interpretation Comments Urine Epithelial Cells (test code = 39723-6) RARE NONE [facility] Vazja2881-22-71 21:38:00* Test Item Value Reference Range Interpretation Comments Urine Mucus (test code = 8247-9) FEW RARE H [facility] HospitalUrine Nhdtv1898-90-96 21:24:00* Test Item Value Reference Range Interpretation Comments Urine Color (test code = 5778-6) YELLOW YELLOW [facility] HospitalUrine Ntescyu7186-88-73 21:24:00* Test Item Value Reference Range Interpretation Comments Urine Clarity (test code = 90251-6) CLEAR CLEAR [facility] HospitalUrine Specific Uwmenhu7992-80-52 21:24:00 * Test Item Value Reference Range Interpretation Comments Urine Specific [place] (test code = 5811-5) 1.025 1.010-1.02 5 [facility] HospitalUrine kH4798-40-33 21:24:00* Test Item Value Reference Range Interpretation Comments Urine pH (test code = 46103-4) 6.5 5-7 [facility] HospitalUrine Leukocyte Ectjxltg0020-88-87 21:24:00* Test Item Value Reference Range Interpretation Comments Urine Leukocyte Esterase (test code = 5799-2) 2+ NEGATIVE H [facility] HospitalUrine Pdjpnuc6897-88-35 21:24:00* Test Item Value Reference Range Interpretation Comments Urine Nitrite (test code = 12229-3) NEGATIVE NEGATIVE [facility] HospitalUrine Njjzvka7775-18-01 21:24:00* Test Item Value Reference Range Interpretation Comments Urine Protein (test code = 5804-0) TRACE NEGATIVE H [facility] Glucose (UA)2017-12-25 21:24:00* Test Item Value Reference Range Interpretation Comments Urine Glucose (UA) (test code = 2349-9) NEGATIVE NEGATIVE [facility] HospitalUrine Qdrgjra6347-50-06 21:24:00* Test Item Value Reference Range Interpretation Comments Urine Ketones (test code = 56935-2) NEGATIVE NEGATIVE [facility] Fnwsbultnabi8109-29-28 21:24:00* Test Item Value Reference Range Interpretation Comments Urine Urobilinogen (test code = 22959-9) 0.2 0.2-1 [facility] Hazhrkocu6112-60-18 21:24:00* Test Item Value Reference Range Interpretation Comments Urine Bilirubin (test code = 1978-6) NEGATIVE NEGATIVE [facility] HospitalUrine Wspxk2578-65-16 21:24:00* Test Item Value Reference Range Interpretation Comments Urine Blood (test code = 89162-4) NEGATIVE NEGATIVE [facility] HospitalUrine Azdzj5737-40-43 21:24:00* Test Item Value Reference Range Interpretation Comments Urine Color (test code = 5778-6) YELLOW YELLOW [facility] HospitalUrine Zahxtvt1585-78-66 21:24:00* Test Item Value Reference Range Interpretation Comments Urine Clarity (test code = 93044-7) CLEAR CLEAR [facility] HospitalUrine Specific Kmxfjax7293-58-53 21:24:00 * Test Item Value Reference Range Interpretation Comments Urine Specific [place] (test code = 5811-5) 1.025 1.010-1.02 5 [facility] HospitalUrine hL2314-33-01 21:24:00* Test Item Value Reference Range Interpretation Comments Urine pH (test code = 93661-6) 6.5 5-7 [facility] HospitalUrine Leukocyte Dijqijhc3852-59-08 21:24:00* Test Item Value Reference Range Interpretation Comments Urine Leukocyte Esterase (test code = 5799-2) 2+ NEGATIVE H [facility] HospitalUrine Ahcoltn6852-22-03 21:24:00* Test Item Value Reference Range Interpretation Comments Urine Nitrite (test code = 47696-2) NEGATIVE NEGATIVE [facility] HospitalUrine Ttfxpgr6565-22-62 21:24:00* Test Item Value Reference Range Interpretation Comments Urine Protein (test code = 5804-0) TRACE NEGATIVE H [facility] HospitalUrine Glucose (UA)2017-12-25 21:24:00* Test Item Value Reference Range Interpretation Comments Urine Glucose (UA) (test code = 2349-9) NEGATIVE NEGATIVE [facility] HospitalUrine Nwilpyg7822-34-79 21:24:00* Test Item Value Reference Range Interpretation Comments Urine Ketones (test code = 18947-7) NEGATIVE NEGATIVE [facility] HospitalUrine Pcreboacsaqr0255-88-94 21:24:00* Test Item Value Reference Range Interpretation Comments Urine Urobilinogen (test code = 56156-5) 0.2 0.2-1 [facility] HospitalUrine Fkmgcfwnv0775-62-88 21:24:00* Test Item Value Reference Range Interpretation Comments Urine Bilirubin (test code = 1978-6) NEGATIVE NEGATIVE [facility] HospitalUrine Fdvbv6773-94-71 21:24:00* Test Item Value Reference Range Interpretation Comments Urine Blood (test code = 65452-0) NEGATIVE NEGATIVE [facility] HospitalCHEST 2 VIEWS [place] [address] Patient Name: FLY MILES MR #: [id number] : 1955 Age/Sex: 62/F Req #: [id number] Adm Physician: JOSE M WHEATLEY MD Ordered by: JOSE M WHEATLEY MD Report #: [id number] Location: MED/SURG Room/Bed: [facility] Procedure: [id number] DX /CHEST 2 VIEWS Exam Date: 12/27/17 Exam Time: 614 REPORT STATUS: Signed EXAM: CHEST 2 VIEWS, PA and lateral INDICATION: Dyspnea COMPARISON: PA and lateral view of the chest October 22, 2009 FINDI NGS: LINES/TUBES: None LUNGS: No consolidations or edema. PLEURA: N o effusions or pneumothorax. HEART AND MEDIASTINUM: Normal size and contour . BONES AND SOFT TISSUES: No acute findings. IMPRESSION: No acute t horacic abnormality. Signed by: Dr. Rich Haley M.D. on 018 6:32 AM Dictated By: RICH HALEY MD 1 Transcribed By: DAMARIS on 12/27/17631 CO PY TO: JOSE M WHEATLEY MD
--- NOTE | 2020-03-13 10:37 | NUR ---
BLOOD HEMOLYZED, REDRAWN PATIENTS NARES CLEANED OF BLOOD CLOTS
[2020-03-13 10:38] LABS: BASOPHILS % 0.4 % (0.0-1.0); EOSINOPHILS % 0.4 % (0.0-6.0); HEMOGLOBIN 10.1 g/dL (12.0-16.0); LYMPHOCYTES % 10.4 % (18.0-39.1); MEAN CORPUSCULAR HEMOGLOBIN 29.1 pg (28-32); MEAN CORPUSCULAR HGB CONC 30.6 g/dL (31-35); MEAN CORPUSCULAR VOLUME 95.1 fL (81-99); MONOCYTES # (AUTO) 0.5 (0.2-0.8); MONOCYTES % 5.2 % (4.4-11.3); NEUTROPHILS # (AUTO) 8.2 (2.1-6.9); NEUTROPHILS % 83.2 % (38.7-80.0); PLATELET COUNT 222 x10e3/uL (140-360); RED BLOOD COUNT 3.47 x10e6/uL (3.6-5.1); RED CELL DISTRIBUTION WIDTH 14.5 % (11.7-14.4)
[2020-03-13 10:50] LABS: INR 1.14; PROTHROMBIN TIME 15.2 seconds (11.9-14.5)
[2020-03-13 10:59] LABS: ALANINE AMINOTRANSFERASE 18 IU/L (0-55); ALBUMIN 2.9 g/dL (3.5-5.0); ALKALINE PHOSPHATASE 59 IU/L (40-150); ANION GAP 12.1 mmol/L (8-16); BLOOD UREA NITROGEN 19 mg/dL (7-26); BUN/CREATININE RATIO 32 (6-25); CALCIUM 8.9 mg/dL (8.4-10.2); CARBON DIOXIDE 22 mmol/L (22-29); CHLORIDE 110 mmol/L (98-107); CREATININE, SERUM 0.59 mg/dL (0.57-1.11); EST GLOMERULAR FILTRATION RATE > 60 ML/MIN (60-); GLUCOSE 85 mg/dL (74-118); POTASSIUM 4.1 mmol/L (3.5-5.1); SODIUM 140 mmol/L (136-145)
[2020-03-13] MEDS ORDERED: OXYMETAZOLINE HCL 0.05% NAS 1 SPRAY BTL ONE (12:06)
--- NOTE | 2020-03-13 12:19 | NUR ---
SPOKE WITH ANNETTE ([employer]) [phone] SHE IS ON HER WAY TO PICK HER UP
[2020-03-13] MEDS ORDERED: OXYMETAZOLINE HCL 0.05% NAS 1 SPRAY BTL SCH (21:00)
== END 2020-03-13 12:18 | disposition home or self-care (01) ==
LOC: ER 10:18
DX: R04.0 Epistaxis (principal); D64.9 Anemia, unspecified; K21.9 Gastro-esophageal reflux disease without esophagitis; F33.9 Major depressive disorder, recurrent, unspecified
CPT/HCPCS: 36415; 80053; 85025; 85610; 93005; 99284; J7040

== ENCOUNTER → 2021-02-14 | Outpatient (CLI) | payer MEDICARE | LOC: MAMMO 10:06 | PROVIDERS: ATTEND Internal Medicine | DX: Z12.31 Encounter for screening mammogram for malignant neoplasm of breast (principal); Z13.820 Encounter for screening for osteoporosis | CPT/HCPCS: 77067; 77080 ==

== ENCOUNTER → 2022-03-24 | Outpatient (CLI) | payer MEDICARE | LOC: MAMMO 09:35 | PROVIDERS: ATTEND Family Medicine | DX: Z12.31 Encounter for screening mammogram for malignant neoplasm of breast (principal); M85.88 Other specified disorders of bone density and structure, other site; Z78.0 Asymptomatic menopausal state | CPT/HCPCS: 77067; 77080 ==